=== PATIENT | female | born 1970 | race Caucasian/White ===

== ENCOUNTER → 2017-05-24 07:15 | Outpatient (CLI) | payer OTHER, SELFPAY ==
--- NOTE | 2017-05-24 07:20 | CT_ITS ---
STUDY: CT BRAIN WITH AND WITHOUT CONTRAST REASON FOR EXAM: Female, 47 years old. Right-sided and posterior headaches. RADIATION DOSAGE (If Supplied By Facility): CTDIvol = ( 44.99 ) mGy, DLP = ( 1513.48 ) mGycm TECHNIQUE: Transaxial CT imaging of the brain was performed pre and post contrast administration. The examination was performed with intravenous administration of 50 ml of Isovue 370 contrast material. Individualized dose optimization techniques were used for this CT. COMPARISON: None. FINDINGS: Normal soft tissue structures. Normal calvarium. Normal size ventricles and extra-axial spaces for the patient's age. Normal white matter tracts of the cerebral hemispheres. Normal basal ganglia and thalami. Normal brainstem. Normal cerebellum. There is no intracranial hemorrhage. There are no findings of an acute ischemic infarction. Normal visualized paranasal sinuses. CT/Brain/Head W/WO Contrast IMPRESSION: Normal unenhanced and enhanced CT scan of the brain. Electronically Signed: Anurag Tillman MD at 8:38 EDT Tel [phone], Service support ,
== END ==
PROVIDERS: Family Provider Internal Medicine; PCP Internal Medicine; Visit Provider Internal Medicine
DX: R51 Headache (principal)
CPT/HCPCS: 70470; Q9967

== ENCOUNTER → 2017-10-28 07:51 | Outpatient (CLI) | payer OTHER, SELFPAY ==
--- NOTE | 2017-10-28 07:53 | BI_ITS ---
MAMMOGRAPHY - BILATERAL SCREENING REASON FOR EXAM: Female, 47 years old. Routine annual screening examination. PERTINENT HISTORY: Non-contributory. TECHNIQUE: Digital bilateral breast iker (3D mammographic acquisition) in the CC and MLO projections. 2-D mediolateral oblique (MLO) and craniocaudad (CC) views of both breasts were obtained. CAD: Full Field Digital Mammography with Computer Added Detection was performed. COMPARISON: Comparison is made with prior study dated February 23, 2016 and November 16, 2009. FINDINGS: Breast Composition: There are scattered areas of fibroglandular density. There are no dominant masses or suspicious calcifications. No other significant abnormalities are identified. There has been no significant change since the prior study. BI/SCREENING MAMM (CAD), BILAT IMPRESSION: Stable bilateral screening mammogram. Yearly follow-up mammogram recommended. (A) ASSESSMENT CATEGORY: BIRADS Category 1: Negative. A letter regarding these results will be sent to the patient by the facility within 30 days. Approximately 10% of breast cancers are not detected by mammography. A normal mammogram should not delay biopsy of a clinically suspicious abnormality. [id number] Electronically Signed: Anurag Tillman MD at 8:15 EDT Tel [phone], Service support ,
== END ==
PROVIDERS: Family Provider Internal Medicine; PCP Internal Medicine; Visit Provider Internal Medicine
DX: Z12.31 Encounter for screening mammogram for malignant neoplasm of breast (principal)
CPT/HCPCS: 77063; 77067

== ENCOUNTER → 2018-02-17 08:26 | Outpatient (CLI) | payer OTHER, SELFPAY ==
[2015-09-19 09:25] VITALS: BMI 33.1
[2018-02-17 09:40] LABS: Absolute Lymphocyte Count 1.67 X10^3/ul (0.83-4.51); Absolute Neutrophil Count 3.5 X10^3/uL (2.0-7.7); Basophil# 0.04 X10^3/uL; Basophil% 0.7 % (0-1); Eosinophil# 0.09 X10^3/uL; Eosinophils% 1.6 % (0-5); Hematocrit 41.5 % (37-47); Hemoglobin 13.8 g/dl (12.0-15.0); Lymphocyte # 1.67 X10^3/ul (4.0); Mean Corp Hgb Conc 33.3 g/gl (32-36); Mean Corpuscular Hgb 29.7 pg (27.0-32.0); Mean Corpuscular Volume 89.4 fL (81-99); Mean Platelet Vol. 9.1 fl (6.2-12.0); Monocyte# 0.42 X10^3/uL; Monocyte% 7.3 % (0-10); Neutrophil # 3.53 X10^3/uL (2.7-7.7); Neutrophil % 61.2 % (47-70); Platelet Count 245 K/mm3 (150-450); RBC Distribution Width CV 13.1 % (11.6-14.6); RBC Distribution Width SD 42.5 fl (35.1-43.9); Red Blood Count 4.64 M/mm3 (4.2-5.4); White Blood Count 5.8 K/mm3 (4.4-11.0)
[2018-02-17 09:42] LABS: POSITIVE COUNT NO; POSITIVE DIFFERENTIAL NO; POSITIVE MORPHOLOGY NO
[2018-02-17 10:36] LABS: AST(SGOT) 23 U/L (15-37); Alanine Aminotransfer ALT/SGPT 44 U/L (13-56); Albumin, Serum 3.6 g/dL (3.2-5.0); Alkaline Phosphatase 88 U/L (45-117); Anion Gap 9 (5-15); BUN 14 mg/dL (7-18); BUN/Creat Ratio 15.6 RATIO (10-20); Calcium,Total 8.7 mg/dL (8.5-10.1); Chloride 106 mmol/L (98-107); EST Glomerular Filtration Rate 71 mL/min (>60); Est Glom Filt Rate - Afr Amer 86 mL/min (>60); Free T3 2.8 pg/mL (2.18-3.98); Globulin 3.5 g/dL (2.2-4.2); Glucose 88 mg/dL (74-106); Potassium 4.2 mmol/L (3.5-5.1); Protein, Total 7.1 g/dL (6.4-8.2); Sodium Level 141 mmol/L (136-145); T4 Free Direct 0.92 ng/dL (0.76-1.46); Thyroid Stim Hormone (TSH) 2.75 uIU/mL (0.358-3.74)
[2018-02-20 12:07] LABS: CHOLESTEROL TOTAL 170 mg/dL (100-199); HDL-C 54 mg/dL (>39); HDL-P TOTAL 36.7 umol/L (>=30.5); SMALL LDL-P 435 nmol/L (<=527); TRIGLYCERIDES 73 mg/dL (0-149)
[2018-02-22 09:37] LABS: LDL SIZE 21.3 nm (>20.5); LDL-C 101 mg/dL (0-99); LDL-P 960 nmol/L (<1000); LP-IR SCORE ** <25 (<=45)
== END ==
PROVIDERS: Family Provider Internal Medicine; PCP Internal Medicine; Referring Provider Internal Medicine; Visit Provider Internal Medicine
DX: M79.89 Other specified soft tissue disorders (principal); R07.9 Chest pain, unspecified
CPT/HCPCS: 36415; 80053; 80061; 83704; 84439; 84443; 84481; 85025

== ENCOUNTER → 2018-10-16 07:48 | Outpatient (CLI) | payer OTHER, SELFPAY ==
--- NOTE | 2018-10-16 07:52 | CT_ITS ---
STUDY: CT ABDOMEN AND PELVIS WITHOUT CONTRAST REASON FOR EXAM: Female, 48 years old. Bloating and right lower quadrant discomfort RADIATION DOSAGE (If Supplied By Facility): CTDIvol = ( 17.30 ) mGy, DLP = ( 894.86 ) mGycm TECHNIQUE: Transaxial images were obtained from the dome of the diaphragm to the symphysis pubis without oral contrast, and without intravenous contrast. Sagittal and coronal images were reconstructed. Individualized dose optimization techniques were used for this CT. COMPARISON: June 16, 2008 FINDINGS: The visualized lung bases are unremarkable. The visualized portions of the heart are within normal limits. Normal liver. Large calcified gallstone without evidence for acute inflammatory changes. Tiny granulomatous calcifications within normal size spleen. Normal pancreas. Normal bilateral adrenal glands. Normal right kidney. Normal left kidney. Normal visualized stomach. Normal small intestine. Minor diverticular changes of the colon without evidence for acute diverticulitis.. No evidence for acute appendicitis.. Normal abdominal aorta. Normal inferior vena cava. Normal retroperitoneum. Incompletely distended mildly thick-walled bladder likely of no significance Normal abdominal wall. Lumbar spine demonstrates mild spondylosis CT/Abdomen/Pelvis without Cont IMPRESSION: Cholelithiasis without evidence for acute cholecystitis. Minor diverticular changes of colon without evidence for acute diverticulitis. No evidence for acute appendicitis Electronically Signed: Joshua Valerio MD at 21:50 EDT , Service support ,
== END ==
PROVIDERS: Family Provider Internal Medicine; PCP Internal Medicine; Referring Provider Internal Medicine; Visit Provider Internal Medicine
DX: R14.0 Abdominal distension (gaseous) (principal)
CPT/HCPCS: 74176

== ENCOUNTER → 2018-10-22 12:45 | Outpatient (CLI) | payer OTHER, SELFPAY ==
--- NOTE | 2018-10-22 13:17 | US_ITS ---
STUDY: THYROID ULTRASOUND REASON FOR EXAM: Female, 48 years old. Nodules TECHNIQUE: Ultrasound evaluation of the thyroid was performed with real-time and static christianson-scale imaging. COMPARISON: 09/15/2016 FINDINGS: RIGHT LOBE: The right lobe of the thyroid gland measures 4.4 x 1.4 x 1.3 cm. There is a heterogeneous echotexture. There are stable solid nodules, largest measures 9 mm. LEFT LOBE: The left lobe of the thyroid gland measures 3.7 x 1.0 x 1.1 cm. There is a heterogeneous echotexture. There are stable solid nodules measuring 6 mm in greatest dimension. ISTHMUS: The isthmus measures 3 mm. The regional lymph nodes are normal. US/Thyroid IMPRESSION: Normal size heterogeneous thyroid gland with stable bilateral subcentimeter solid nodules. No interval change. Electronically Signed: Lisandro Rocha MD at 14:21 EDT , Service support ,
== END ==
PROVIDERS: Family Provider Internal Medicine; PCP Internal Medicine; Referring Provider Internal Medicine; Visit Provider Internal Medicine
DX: E01.0 Iodine-deficiency related diffuse (endemic) goiter (principal)
CPT/HCPCS: 76536

== ENCOUNTER → 2018-10-24 12:49 | Outpatient (CLI) | payer OTHER, SELFPAY ==
[2015-09-19 09:25] VITALS: BMI 33.1
--- NOTE | 2018-10-24 12:52 | US_ITS ---
STUDY: ULTRASOUND OF THE FEMALE PELVIS - COMPLETE REASON FOR EXAM: Female, 48 years old. Pain, history of ovarian cyst LMP: Unknown. TECHNIQUE: Transabdominal and Transvaginal TECHNICAL QUALITY: Adequate. COMPARISON: None. FINDINGS: The uterus was not visualized. The right ovary is visualized. The right ovary measures 1.8 x 0.8 x 0.7 cm. There is no right ovarian cyst or ovarian mass. There is no visualized right adnexal mass or complex lesion. There is normal arterial and normal venous vascularity. The left ovary is visualized. The left ovary measures 2.1 x 1.5 x 1.0 cm. There is no left ovarian cyst or ovarian mass. There is no visualized left adnexal mass or complex lesion. There is normal arterial and normal venous vascularity. There is no fluid in the cul-de-sac. The bladder is sonographically normal US/Pelvic (Non ) IMPRESSION: No suspicious sonographic findings Electronically Signed: Lisandro Rocha MD at 15:21 EDT , Service support ,
== END ==
PROVIDERS: Family Provider Internal Medicine; PCP Internal Medicine; Referring Provider Internal Medicine; Visit Provider Internal Medicine
DX: N83.201 Unspecified ovarian cyst, right side (principal)
CPT/HCPCS: 76856; 93976

== ENCOUNTER → 2018-10-29 07:59 | Outpatient (CLI) | payer OTHER, SELFPAY ==
[2015-09-19 09:25] VITALS: BMI 33.1
--- NOTE | 2018-10-29 08:01 | BI_ITS ---
MAMMOGRAPHY - BILATERAL SCREENING REASON FOR EXAM: Female, 48 years old. Routine annual screening examination. PERTINENT HISTORY: Non-contributory. TECHNIQUE: Digital bilateral breast marianna (3D mammographic acquisition) in the CC and MLO projections. 2-D mediolateral oblique (MLO) and craniocaudad (CC) views of both breasts were obtained. CAD: Full Field Digital Mammography with Computer Added Detection was performed. COMPARISON: Comparison is made with prior examination of October 28, 2017 and February 23, 2016. FINDINGS: Breast Composition: There are scattered areas of fibroglandular density. There are no dominant masses or suspicious calcifications. Stable appearance of the small bilateral axillary lymph nodes. No other significant abnormalities are identified. There has been no significant change since the prior study. BI/SCREEN MAMM (CAD) W/MARIANNA BILAT IMPRESSION: Stable bilateral screening mammogram. Yearly follow-up mammogram recommended. (A) ASSESSMENT CATEGORY: BIRADS Category 2: Benign. A letter regarding these results will be sent to the patient by the facility within 30 days. Approximately 10% of breast cancers are not detected by mammography. A normal mammogram should not delay biopsy of a clinically suspicious abnormality. [id number] Electronically Signed: Anurag Tillman, at 9:38 EDT , Service support ,
== END ==
PROVIDERS: Family Provider Internal Medicine; PCP Internal Medicine; Referring Provider Internal Medicine; Visit Provider Internal Medicine
DX: Z12.31 Encounter for screening mammogram for malignant neoplasm of breast (principal)
CPT/HCPCS: 77063; 77067

== ENCOUNTER 2018-12-20 06:01 | Day surgery (SDC) | payer OTHER, SELFPAY ==
[2018-11-06 08:48] VITALS: BMI 33.1
--- NOTE | 2018-12-03 09:12 | HP_ITS ---
Intake Vital Signs 11/06/18 Body Mass Index (BMI) 33.1 11/06/18 Height 5 ft 4 in 11/06/18 Weight: 216 lb 11/06/18 Body Mass Index (BMI) 37.0 11/06/18 Blood Pressure 130/90 H 11/06/18 Blood Pressure Location Rt brachial 11/06/18 Respiratory Rate 18 11/06/18 Pulse Rate 76 11/06/18 Pulse Source Monitor 11/06/18 Temperature 98.4 F 11/06/18 Pulse Ox 97 11/06/18 Oxygen Delivery Method room air Intake Visit Reasons: Gallstones [facility] 10/16 Machine Bender Required: No Is patient in pain?: No Allergies iodine Allergy (Verified 11/06/18 08:46) Other Medications Budesonide/Formoterol 80-4.5 [Symbicort 80-4.5 Mcg Inhaler] 2 puff INHALATION Q6H PRN PRN 04/24/13 [History Confirmed 11/06/18] Omeprazole [Prilosec] 20 mg PO DAILY 04/24/13 [History Confirmed 11/06/18] levothyroxine 25 mcg tablet PO #30 tab 11/06/18 [History Confirmed 11/06/18] [facility] Medical History Abdominal pain (Acute) GERD (gastroesophageal reflux disease) (Acute) Gallstone (Acute) Nausea (Acute) Sleep apnea (Acute) Weight gain (Acute) Surgical History History of (Acute) History of hysterectomy (Acute) Family History Grandfather Cancer esophageal cancer Social History (Updated 11/07/18 @ 11:32 by Kamaljit Reardon MD) Smoking Status: Never smoker alcohol intake: current alcohol intake frequency: a few times a month substance use type: does not use HPI HPI HPI: KRISTA VASQUEZ, is a 48 F who presents to the office today for HPI HPI Surgical H&P: Yes HPI: KRISTA VASQUEZ, is a 48 F who presents to the office today for Evaluation of cholelithiasis. Patient has had a CAT scan of the abdomen pelvis completed it was [facility] on 10/16/2018 she was noted to have a large calcified gallstone without evidence of acute inflammatory changes. Patient has been complaining of right sided fullness more prominent over the last few months. Occasionally worse with food. She has had no nausea or vomiting nor has she had any pain in her back. Patient is also noted that since June she has had about a 20 pound weight gain. She does not have the classic symptoms of symptomatic cholelithiasis with right upper quadrant abdominal pain going into her back associated with foods clearly. Symptoms are more fullness. ROS General General: Yes weight change and fatigue; no appetite, colon cancer, breast cancer or weakness HEENT HEENT: No difficulty swallowing, eye injury, eye surgery, swollen glands or hoarseness Endo Endocrine: Yes thyroid disease; no diabetes mellitus, thyroid cancer, Hair loss, heat intolerance or cold intolerance Skin Skin: No rash or changing moles Breast Breast: No left breast lump, right breast lump, nipple discharge, breast pain, abnormal mammogram, abnormal US or breast enlargement Musc Musculoskeletal: No back problems, arthritis, rheumatoid arthritis, gout or joint pain Cardio Cardiovascular: No murmur, pacemaker, heart disease, atrial fibrillation, high blood pressure, heart attack, heart stent, palpitations, shortness of breat with exertion or chest pain Psych Psychiatric: No depression, anxiety or hearing voices Resp Respiratory: No shortness of breath, Yes sleep apnea, No cough, No COPD, No asthma, No emphysema, No wheezing Gastro Gastrointestinal: Yes abdominal pain, Yes nausea or vomiting, No diarrhea, No constipation, No blood in stool, Yes acid reflux, No hemorrhoids, No ulcers, No gallbladder problem, No black,tarry stools Abbe Hematologic: No blood thinners, No blood disorders, No bleeding, No anemia, No blood clots Neuro Neurologic: No system reviewed and no additional complaints, except as docu, No as per HPI, No abnormal walking, No abnormal hearing, No abnormal movements, No abnormal speech, No behavioral changes, No burning sensations, No confusion, No seizure-like activity, No unsteadiness, No dizziness, No localized weakness, No frequent falls, No headache(s), No lack of coordination, No loss of vision, No memory loss, No numbness, No other visual disturbances, No radiating pain, No restless legs, No sensory deficit, No fainting, No tingling, No tremor(s), No weakness, No other Exam Const General: no acute distress, well developed, well hydrated Orientation: oriented to person, oriented to place, oriented to time [facility] Head: normocephalic, atraumatic Ears: external ears normal Mouth: moist mucous membranes Eyes Sclera: sclerae normal Pupils: normal by confrontation Neck Neck: no lymphadenopathy noted Neck mass: No Thyroid: thyroid normal, symmetrical Chest Chest palpation & inspection: normal inspection of the chest Breast Palpation: No nipple discharge Resp Effort & Inspection: normal respiratory effort Auscultation: clear to auscultation bilaterally Percussion: percussion normal Cardio Rate: regular rate Rhythm: regular rhythm Heart Sounds: no murmurs GI Palpation: soft, no hepatosplenomegaly, no masses, tender Auscultation: normal bowel sounds Rectal Exam: other Other: Rectal exam deferred. Extrem General: normal to inspection, no clubbing, cyanosis or edema Assessment & Plan Problems 1. Calculus of gallbladder with chronic cholecystitis without obstruction K80.10 Plan My plan is to perform a laparoscopic cholecystectomy with intraoperative cholangiogram. The planned surgical procedure was discussed extensively with the patient. The risks, benefits, anticipated outcomes and possible complication were mentioned. My staff has also explained the procedure in understandable terms and the patient was given the option to take printed material concerning the planned procedure. The patient had the opportunity to ask questions concerning the planned procedure. The patient freely consents to the planned procedure. I have gone over her endoscopy results which were completed at the [facility]. She really does not have anything within her upper or her lower endoscopy which would explain her symptoms at this time. Her last colonoscopy was in 2016 and her upper endoscopy was in January 2018. And really not sure that repeating these tests are going to give us any more information than we do not already know. She does understand that there is still is a chance that even after removing her gallbladder that she could have the symptoms that she is currently describing. However I believe that this surgery will give her her best chance of feeling normal. Coding Level of Care Code Off vis,new,level 3 Diagnoses Calculus of gallbladder with chronic cholecystitis without obstruction K80.10 ??Cholelithiasis location: gallbladder ??Cholecystitis acuity: chronic I have re-examined the patient. There are no clinical changes since date of exam.
--- NOTE | 2018-12-17 08:27 | EKG12_ITS ---
Test Reason : PRE OP Blood Pressure : / mmHG Vent. Rate : 067 BPM Atrial Rate : 067 BPM P-R Int : 156 ms QRS Dur : 084 ms QT Int : 412 ms P-R-T Axes : 057 020 035 degrees QTc Int : 435 ms Normal sinus rhythm Normal ECG Confirmed by CYNTHIA BELL, ALBA ([id number]), graphics editor HEAVENLY ROSENBERG ([id number]) on 12/18/2018 1:56:26 PM Referred By: Kamaljit Reardon Confirmed By:ALBA MARIE MD
[2018-12-17 09:54] LABS: Hematocrit 42.5 % (37-47); Hemoglobin 13.9 g/dL (12.0-15.0); Mean Corp Hgb Conc 32.7 g/dL (32-36); Mean Corpuscular Hgb 28.9 pg (27.0-32.0); Mean Corpuscular Volume 88.4 fL (81-99); Mean Platelet Vol. 8.8 fl (6.2-12.0); Platelet Count 271 K/mm3 (150-450); RBC Distribution Width CV 12.8 % (11.6-14.6); RBC Distribution Width SD 41.5 fl (35.1-43.9); Red Blood Count 4.81 M/mm3 (4.2-5.4); White Blood Count 6.3 K/mm3 (4.4-11.0)
[2018-12-17 10:21] LABS: International Normalized Ratio 1.1; Prothrombin Time (Protime)PT. 13.9 SECONDS (11.7-14.9)
[2018-12-17 10:22] LABS: Partial Thromboplast Time 32.2 Seconds (24.1-36.2)
[2018-12-17 10:30] LABS: AST(SGOT) 28 U/L (15-37); Alanine Aminotransfer ALT/SGPT 45 U/L (13-56); Albumin, Serum 3.7 g/dL (3.2-5.0); Alkaline Phosphatase 84 U/L (45-117); Globulin 3.9 g/dL (2.2-4.2); Protein, Total 7.6 g/dL (6.4-8.2); Thyroid Stim Hormone (TSH) 2.68 uIU/mL (0.358-3.74)
[2018-12-20] VITALS (10 sets, daily range): BP systolic 115–140; BP diastolic 73–106; PULSE 61–73; RESP 16–18; TEMP 36.1–36.8; O2SAT 94–98; BMI 36.3
[2018-12-20] MEDS: Lactated Ringers 1,000 ML 100 ML IV ×2 (06:54→07:08)
--- NOTE | 2018-12-20 07:30 | GALL_PTH ---
PATIENT: KRISTA VASQUEZ LOC: [facility] U#:[id number] AGE/SX: 48/F ROOM: RE12/20/[address]: Dr. Kamaljit Reardon MD : 1970 BED: DIS: 12/20/2018 SPEC #: [id number] RECD: 12/20/18 14:36 STATUS: MARIEL NADEGE #: [id number] LI: 12/20/18 07:[address]: Kamaljit Reardon DEPT: SURGICAL PATHOLOGY RECD BY: Isaac Waldrop ENTERED: 12/21/18 09:40 SP TYPE: MERLIN CERVANTES DR: Dr. Liana Morfin, Tissues: Gallbladder, NOS Procedures: Surgery Specimen Level III HEADER OPERATION: Robotic assisted laparoscopic cholecystectomy PRE-OP DIAGNOSIS: Calculus of gallbladder TISSUE SUBMITTED: Gallbladder MICROSCOPIC DIAGNOSIS Gallbladder, cholecystectomy: Chronic cholecystitis and cholelithiasis. AM:joss 12/24/18 MICROSCOPIC DESCRIPTION Slides are reviewed. GROSS DESCRIPTION Received is one container labeled with the patient's name and designated gallbladder. The specimen consists of a gallbladder measuring 10 cm in length and up to 3 cm in diameter. The external surface is pink-arce, smooth and glistening for the most part. Focally it is granular, hemorrhagic and contains cautery artifact. The gallbladder contains green-yellow mucoid bile and one greenish ovoid stone measuring 2.5 x 2 x 1.5 cm. The mucosa is bile-stained and without any mass lesions. The gallbladder wall measures 0.1 cm in thickness. Ent Consultant sections from the gallbladder and the cystic duct are submitted in one cassette. / SJ:rg 12/21/18 TC:3 CPT: 23496
[2018-12-20] MEDS: Cefazolin 2 GM in 0.9% Normal Saline 100 ML IV (07:32)
--- NOTE | 2018-12-20 07:33 | PCM.DC.GB ---
Discharge Diet: Light diet - advance as tolerated Discharge Activity: May Not Drive - for 2-3 days or while taking narcotic pain medications., - - Do not drive, work heavy equipment or sign legal documents for 24 hours. May shower in (days): 1 - with the bandage in place. Additional Activity Instructions:: Pain medication may cause nausea. You should typically eat light foods as you take your pain medications. Pain medication may also cause constipation. If this is a problem for you, please discuss with your doctor. Call your doctor if your incision/area has: Continuous Slow Oozing, Sudden Increased Bleeding, Increased Pain/ Swelling, Increased Redness, Foul Smelling Discharge Call your doctor if you observe: Fever of 101 or Higher Suture Line Care: Avoid Pulling/Pushing, Avoid Pinching/Bending Additional Dressing/Incision Instructions:: Leave operative bandaids on for 2 days. When you remove dressing, leave Steri-Strips on until your follow-up appointment, or until the Steri-Strips fall off on their own. Allergies/Adverse Reactions: Allergies acetaminophen [From Percocet] Allergy (Verified 12/20/18 06:32) Itching iodine Allergy (Verified 12/20/18 06:32) Other oxycodone [From Percocet] Allergy (Verified 12/20/18 06:32) Itching Medications to take at Discharge Budesonide/Formoterol 80-4.5 [Symbicort 80-4.5 Mcg Inhaler] 2 puff INHALATION Q6H PRN PRN 04/24/13 Omeprazole [Prilosec] 20 mg PO QHS 04/24/13 levothyroxine 25 mcg tablet 25 mcg PO DAILY #30 tab 11/06/18 Fluticasone 0.05% [Flonase Nasal Aladdin] 1 spray NASAL QHS 12/14/18 Hydrocodone Bitart/Apap 5-325 [[place] 5MG-325MG] 1 - 2 tab PO Q4H PRN PRN 7 Days #30 tab 12/20/18 The following prescriptions were given: Hydrocodone Bitart/Apap 5-325 [[place] 5MG-325MG] 1 - 2 tab PO Q4H PRN PRN 7 Days #30 tab PRN Reason: Pain Prescription Printed Orders to be completed after discharge: 12 Lead EKG [[facility]] Time Frame: 12/14/18, Facility: [facility], Location: Cardiovascular Services CBC-Complete Blood Cnt No Diff Time Frame: 12/14/18, Facility: [facility], Location: Laboratory Liver Profile Time Frame: 12/14/18, Facility: [facility], Location: Laboratory Partial Thromboplast Time Time Frame: 12/14/18, Facility: [facility], Location: Laboratory Prothrombin Time w/INR Time Frame: 12/14/18, Facility: [facility], Location: Laboratory Thyroid Stim Hormone (TSH) Time Frame: 12/14/18, Facility: [facility], Location: Laboratory Primary Care Physician: Liana Morfin DO [Primary Care Provider] - Test Results: Test results from this visit will be discussed in further detail at your follow-up appointment, if applicable. Please Follow Up With: Kamaljit Reardon MD - Please call [phone] to schedule an appointment. When: 7 days after your surgery.
--- NOTE | 2018-12-20 07:33 | PCM.OPRPT ---
Problem List (1) Calculus of gallbladder with chronic cholecystitis without obstruction Status: Chronic Report of Operation Date of Procedure: 12/20/18 Pre-Operative Diagnosis: Calculus of the gallbladder without obstruction or gangrene Post-Operative Diagnosis: Same Surgery/Procedure Performed:: Laparoscopic cholecystectomy Type of Anesthesia:: General Anesthesiologist: Eyal Rivera Specimen's removed: Gallbladder Drains: None Estimated Blood Loss (mL): < 25 cc Fluids Replaced: 1200 cc LR Description of Procedure: The patient was brought into the operating room placed in the supine position. Under excellent endotracheal intubation patient was then placed in position with the head up and rotated to the left. The abdomen was then sterilely prepped and draped in usual fashion. Local was injected above the umbilicus incision was made dissection was carried down to the fascia the fascia was grasped with a Jacquelin varies needle was placed inside the abdomen the abdomen was insufflated to 15 torr a 10/12 trocar was placed without difficulty. I placed a #8 trocar in the left midclavicular line centimeters away from the midline trocar and in similar fashion on the right midclavicular line #8 trocar was placed over these under direct visualization without injury to underlying structures. Laterally #5 trochars placed under direct visualization grasper was placed grabbed the fundus was retracted in a cephalad direction. I went to the robot with the robot and pro-grasper I was taking the adhesions off of the gallbladder and retracting the gallbladder in a cephalad direction and similar fashion. He came down I dissected out the cystic duct placed 2 hemoclips proximally one distally and ligated the duct process of dissecting out the cystic artery I identified the right hepatic artery it was very close to the cystic artery as I was dissecting out the cystic artery and I was placing 2 hemoclips proximally I started a unfortunately Max tissue as the exchange of clips was going in and out of the abdomen at this point I decided to go to a strictly regular laparoscopic surgery so that I could push the trocar all the way in and not grasp anything. I inspected all the tissue on the right upper quadrant I did not see any injury to the underlying stomach or colon. I deliver the gallbladder from gallbladder bed with use of electrocautery I placed a regular titanium clip and a small little vessel which I thought was actually a duct of Aislinn way up on the fundus of the gallbladder. Placed the gallbladder and gallbladder bladder specimen bag delivered through the 1012 trocar without difficulty. Rugated the right upper quadrant good hemostasis was noted. Removed all the trochars under direct visualization good hemostasis was noted. Closed the fascia the umbilical port with an 0 Vicryl time skin incisions were closed with some particular stitches of 4-0 Monocryl. Steri-Strips were applied sterile dressings were applied and the patient tolerated the procedure well. - Admit VTE Documentation VTE Present on Admission: No VTE Mechan Device Prophylaxis: SCD's VTE Pharm Prophylaxis ordered?: No Reason prophylaxis not ordered:: Treatment Not Indicated
[2018-12-20] MEDS: Bupivacaine Mpf 0.5% 30 ML VIAL (08:45)
[2018-12-20] MEDS: HYDROcodone Bitartrate/Apap 5/325 Tablet PO (11:05)
== END 2018-12-20 12:10 | disposition home or self-care (01) ==
LOC: SDC 06:07 → AC 06:07
PROVIDERS: Family Provider Internal Medicine; PCP Internal Medicine; Referring Provider Surgery; Visit Provider Surgery
PROC: 0FT44ZZ Resection of Gallbladder, Percutaneous Endoscopic Approach (ICD-10-PCS; CPT 47562; principal; 2018-12-20 07:10)
DX: K80.10 Calculus of gallbladder with chronic cholecystitis without obstruction (principal); J45.909 Unspecified asthma, uncomplicated
CPT/HCPCS: 00790; 47562; 36415; 80076; 84443; 85027; 85610; 85730; 88304; 93005; J7120; J2405

== ENCOUNTER → 2019-07-25 07:57 | Outpatient (CLI) | payer OTHER, SELFPAY ==
[2018-12-20 06:34] VITALS: BMI 36.3
--- NOTE | 2019-07-25 08:00 | US_ITS ---
STUDY: ULTRASOUND - URINARY BLADDER REASON FOR EXAM: Female, 49 years old. Urinary frequency TECHNIQUE: Ultrasound evaluation of the urinary bladder was performed with real-time and static christianson-scale imaging. COMPARISON: None. FINDINGS: There is no right UVJ calculus. There is a visualized right ureteral jet. There is no left UVJ calculus. There is a visualized left ureteral jet. The distended volume of the urinary bladder is 66.5 ml. The empty volume of the urinary bladder is 2.7 ml. The bladder wall is within normal limits. The bladder wall measures 3.3. There is no demonstrated bladder wall mass lesion. There are no demonstrated bladder calculi. US/Post Void Residual Bladder IMPRESSION: No significant postvoid residual is seen. Electronically Signed: Anurag Tillman, at 10:17 EDT , Service support ,
--- NOTE | 2019-07-25 08:00 | US_ITS ---
STUDY: ABDOMINAL ULTRASOUND REASON FOR EXAM: Female, 49 years old. Epigastric pain TECHNIQUE: Transabdominal ultrasound was performed with real-time and static christianson scale imaging. TECHNICAL QUALITY: Adequate. COMPARISON: None. FINDINGS: Liver: The liver is borderline enlarged and measures 17.5 cm. There is normal echogenicity of the liver. The bile ducts are within normal limits. There is hepatic color flow. The direction of portal flow is hepatopetal. There is no demonstrated mass lesion. Portal vein measurement: Gallbladder: The patient is status post cholecystectomy. Common Bile Duct (C.B.D.): The common bile duct measures 5 mm. Pancreas: Normal size of the head, body and tail of the pancreas. There is normal echogenicity of the pancreas. There is no demonstrated pancreatic mass or cyst. Spleen: Normal size of the spleen. The spleen measures 11.7 cm x 4.6 cm x 5.2 cm. Right Kidney: Normal size of the right kidney. The right kidney measures 10.9 cm x 4.8 cm x 4.4 cm. Normal renal cortex. The right cortex measures 1.7 cm. There is no demonstrated renal mass or cyst. There is no right hydronephrosis. Left Kidney: Normal size of the left kidney. The left kidney measures 11 cm x 4.3 cm x 4.7 cm. Normal renal cortex. The left cortex measures 1.4 cm. There is no demonstrated renal mass or cyst. There is no left hydronephrosis. Aorta: Unremarkable I.V.C.: The IVC is patent. There is no ascites. US/Abdomen Complete IMPRESSION: Borderline hepatomegaly. Status post cholecystectomy. Electronically Signed: Anurag Tillman, at 10:06 EDT , Service support ,
== END ==
PROVIDERS: PCP Internal Medicine; Referring Provider Nurse Practitioner; Visit Provider Nurse Practitioner
DX: R10.13 Epigastric pain (principal); R35.0 Frequency of micturition
CPT/HCPCS: 51798; 76700

== ENCOUNTER → 2019-10-11 13:28 | Outpatient (CLI) | payer OTHER, SELFPAY ==
[2018-12-20 06:34] VITALS: BMI 36.3
== END ==
PROVIDERS: PCP Internal Medicine; Referring Provider Family Medicine; Visit Provider Family Medicine
DX: Z20.828 Contact with and (suspected) exposure to other viral communicable diseases (principal)
CPT/HCPCS: 87635; U0003

== ENCOUNTER → 2019-12-23 07:16 | Outpatient (CLI) | payer OTHER, SELFPAY ==
[2018-12-20 06:34] VITALS: BMI 36.3
--- NOTE | 2019-12-23 07:18 | BI_ITS ---
MAMMOGRAPHY - BILATERAL SCREENING REASON FOR EXAM: Female, 49 years old. Routine annual screening examination. PERTINENT HISTORY: Non-contributory. TECHNIQUE: Digital bilateral breast marianna (3D mammographic acquisition) in the CC and MLO projections. 2-D mediolateral oblique (MLO) and craniocaudad (CC) views of both breasts were obtained. CAD: Full Field Digital Mammography with Computer Added Detection was performed. COMPARISON: Comparison is made with prior study dated 10/29/2018 and 10/28/2017. FINDINGS: Breast Composition: There are scattered areas of fibroglandular density. There are no dominant masses or suspicious calcifications. Stable small benign appearing bilateral axillary lymph nodes. No other significant abnormalities are identified. There has been no significant change since the prior study. BI/SCREEN MAMM (CAD) W/MARIANNA BILAT IMPRESSION: Stable bilateral screening mammogram. Yearly follow-up mammogram recommended. (A) ASSESSMENT CATEGORY: BIRADS Category 2: Benign. A letter regarding these results will be sent to the patient by the facility within 30 days. Approximately 10% of breast cancers are not detected by mammography. A normal mammogram should not delay biopsy of a clinically suspicious abnormality. [id number] Electronically Signed: Anurag Tillman, at 8:57 EST , Service support ,
== END ==
PROVIDERS: PCP Internal Medicine; Referring Provider Internal Medicine; Visit Provider Internal Medicine
DX: Z12.31 Encounter for screening mammogram for malignant neoplasm of breast (principal)
CPT/HCPCS: 77063; 77067

== ENCOUNTER → 2020-01-24 12:56 | Outpatient (CLI) | payer OTHER, SELFPAY ==
[2018-12-20 06:34] VITALS: BMI 36.3
== END ==
PROVIDERS: Referring Provider Family Medicine; Visit Provider Family Medicine
DX: Z20.828 Contact with and (suspected) exposure to other viral communicable diseases (principal)
CPT/HCPCS: 87635; U0003

== ENCOUNTER 2020-02-03 13:48 | Outpatient (RCR) | payer OTHER, SELFPAY ==
[2018-12-20 06:34] VITALS: BMI 36.3
== END 2020-02-06 23:59 ==
LOC: LABSPEC 13:48
PROVIDERS: PCP Family Medicine; Referring Provider Family Medicine; Visit Provider Family Medicine
DX: Z20.828 Contact with and (suspected) exposure to other viral communicable diseases (principal)
CPT/HCPCS: 87635; U0003

== ENCOUNTER → 2020-03-02 07:39 | Outpatient (REF) | payer OTHER, SELFPAY ==
[2018-12-20 06:34] VITALS: BMI 36.3
== END ==
LOC: LABSPEC 07:39
PROVIDERS: PCP Family Medicine; Visit Provider Family Medicine
DX: Z20.828 Contact with and (suspected) exposure to other viral communicable diseases (principal)
CPT/HCPCS: 87635; U0003

== ENCOUNTER → 2020-08-24 09:59 | Outpatient (CLI) | payer OTHER, SELFPAY ==
[2018-12-20 06:34] VITALS: BMI 36.3
--- NOTE | 2020-08-24 10:02 | VDLE_ITS ---
Reason For Study: BLE PAIN RIGHT LEFT GSV is normal. GSV is normal. CFV is compressible, spontaneous, phasic, CFV is compressible, spontaneous, phasic, competent and demonstrates normal competent, and demonstrates normal augmentation. augmentation. FV is compressible, spontaneous, phasic, FV is compressible, spontaneous, phasic, competent and demonstrates normal competent and demonstrates normal augmentation. augmentation. POP V is compressible, spontaneous, phasic, POP V is compressible, spontaneous, phasic, competent and demonstrates normal competent and demonstrates normal augmentation. augmentation. T/P Trunk is compressible. T/P Trunk is compressible. PTV is compressible. PTV is compressible. RT PerV is compressible. LT PerV is compressible. Procedure This is a venous duplex using B-mode, color flow and spectral Doppler. Exam performed in department. The exam was diagnostic. A preliminary report was called and/or faxed to Dr. Goldstein @ 10:30 am. VL/Venous Duplex US - Dusty Extrem Interpretation Summary Bilateral lower extremities with no DVT or SVT visualized. Ordering Physician: Devendra Goldstein Referring Physician: Liana Morfin Performed By: Diane Bolaños, ANGIECS, RVT
== END ==
PROVIDERS: PCP Internal Medicine; Referring Provider Surgery Vascular Surgery; Visit Provider Surgery Vascular Surgery
DX: M79.89 Other specified soft tissue disorders (principal); M79.606 Pain in leg, unspecified
CPT/HCPCS: 93970

== ENCOUNTER → 2020-10-14 06:03 | Outpatient (CLI) | payer OTHER, SELFPAY ==
[2018-12-20 06:34] VITALS: BMI 36.3
--- NOTE | 2020-10-14 11:30 | NEURO ---
NCS and/or EMG Patient Report Ordering Doctor: Liana Morfin DATE OF SERVICE: 10/14/20 Sari presents for electrodiagnostic testing. Pt requests only to have right lower limb tested. She reports intermittent numbness and tingling Electrodiagnostic Testing: Performed in the right lower limb. Normal right peroneal and tibial motor responses. Sensory responses are normal. Needle EMG testing shows no evidence of denervation with normal motor unit action potentials. Electrodiagnostic Impression: This is a normal study in the right lower limb. There is no electrodiagnostic evidence for peripheral neuropathy or lumbar radiculopathy.
== END ==
PROVIDERS: PCP Internal Medicine; Referring Provider Internal Medicine; Visit Provider Internal Medicine
DX: R20.0 Anesthesia of skin (principal)
CPT/HCPCS: 95886; 95911

== ENCOUNTER → 2020-12-23 07:19 | Outpatient (CLI) | payer OTHER, SELFPAY ==
[2018-12-20 06:34] VITALS: BMI 36.3
--- NOTE | 2020-12-23 07:20 | BI_ITS ---
MAMMOGRAPHY - BILATERAL SCREENING REASON FOR EXAM: Female, 50 years old. Routine annual screening examination. PERTINENT HISTORY: Non-contributory. TECHNIQUE: Digital bilateral breast marianna (3D mammographic acquisition) in the CC and MLO projections. 2-D mediolateral oblique (MLO) and craniocaudad (CC) views of both breasts were obtained. CAD: Full Field Digital Mammography with Computer Added Detection was performed. COMPARISON: Comparison is made with prior study dated 12/23/2019 and 10/29/2018. FINDINGS: Breast Composition: There are scattered areas of fibroglandular density. There are no dominant masses or suspicious calcifications. Stable benign-appearing bilateral axillary lymph nodes. No other significant abnormalities are identified. There has been no significant change since the prior study. BI/SCRN MAMM (CAD)W/MARIANNA BILAT IMPRESSION: Stable bilateral screening mammogram. Yearly follow-up mammogram recommended. (A) ASSESSMENT CATEGORY: BIRADS Category 2: Benign. A letter regarding these results will be sent to the patient by the facility within 30 days. Approximately 10% of breast cancers are not detected by mammography. A normal mammogram should not delay biopsy of a clinically suspicious abnormality. [id number] Electronically Signed: Anurag Tillman MD at 8:28 EST , Service support ,
== END ==
PROVIDERS: PCP Internal Medicine; Referring Provider Internal Medicine; Visit Provider Internal Medicine
DX: Z12.31 Encounter for screening mammogram for malignant neoplasm of breast (principal)
CPT/HCPCS: 77063; 77067

== ENCOUNTER → 2021-01-13 08:50 | Outpatient (CLI) | payer OTHER, SELFPAY ==
--- NOTE | 2021-01-13 08:58 | EKG12_ITS ---
Test Reason : PREOP Blood Pressure : / mmHG Vent. Rate : 072 BPM Atrial Rate : 072 BPM P-R Int : 158 ms QRS Dur : 078 ms QT Int : 396 ms P-R-T Axes : 064 057 065 degrees QTc Int : 433 ms Normal sinus rhythm Normal ECG Confirmed by LIONEL BELL, HENOK ([id number]), editorial specialist JACKSON DILLARD ([id number]) on 01/14/2021 12:16:50 PM Referred By: Rei Ramirez Confirmed By:HENOK FLOWERS MD
[2021-01-13 09:58] LABS: Hematocrit 41.8 % (37-47); Hemoglobin 13.7 g/dL (12.0-15.0); Mean Corp Hgb Conc 32.8 g/dL (32-36); Mean Corpuscular Hgb 28.7 pg (27.0-32.0); Mean Corpuscular Volume 87.4 fL (81-99); Mean Platelet Vol. 8.9 fl (6.2-12.0); Platelet Count 312 K/mm3 (150-450); RBC Distribution Width CV 12.7 % (11.6-14.6); RBC Distribution Width SD 40.8 fl (35.1-43.9); Red Blood Count 4.78 M/mm3 (4.2-5.4); White Blood Count 5.7 K/mm3 (4.4-11.0)
[2021-01-13 10:30] LABS: Anion Gap 7 (5-15); BUN 12 mg/dL (7-18); BUN/Creat Ratio 12.5 RATIO (10-20); Calcium,Total 9.2 mg/dL (8.5-10.1); Chloride 105 mmol/L (98-107); Creatinine, Serum 0.96 mg/dL (0.55-1.02); EST Glomerular Filtration Rate 65 mL/min (>60); Est Glom Filt Rate - Afr Amer 79 mL/min (>60); Glucose 99 mg/dL (74-106); Potassium 3.8 mmol/L (3.5-5.1); Sodium Level 138 mmol/L (136-145)
== END ==
PROVIDERS: PCP Internal Medicine; Referring Provider Otolaryngology; Visit Provider Otolaryngology
DX: Z01.812 Encounter for preprocedural laboratory examination (principal); Z01.810 Encounter for preprocedural cardiovascular examination
CPT/HCPCS: 36415; 80048; 85027; 93005

== ENCOUNTER 2021-04-07 10:05 | Outpatient (CLI) | payer OTHER, SELFPAY ==
[2021-04-07 12:04] LABS: Erythrocyte Sedimentation Rate 48 mm/hr (0-30)
[2021-04-07 12:10] LABS: ALB/GLOB Ratio 0.8 RATIO (0.9-2.4); AST(SGOT) 407 U/L (15-37); Absolute Neutrophil Count 3.9 X10^3/uL (2.0-7.7); Alanine Aminotransfer ALT/SGPT 454 U/L (13-56); Albumin, Serum 3.4 g/dL (3.2-5.0); Alkaline Phosphatase 480 U/L (45-117); Anion Gap 7 (5-15); BUN 11 mg/dL (7-18); BUN/Creat Ratio 11.4 RATIO (10-20); Basophil# 0.05 X10^3/uL; Basophil% 0.8 % (0-1); Bilirubin, Direct 4.88 mg/dL (0.00-0.30); Calcium,Total 9.3 mg/dL (8.5-10.1); Chloride 102 mmol/L (98-107); Creatinine, Serum 0.96 mg/dL (0.55-1.02); EST Glomerular Filtration Rate 65 mL/min (>60); Eosinophil# 0.19 X10^3/uL; Eosinophils% 3.2 % (0-5); Est Glom Filt Rate - Afr Amer 79 mL/min (>60); GGTP 1000 U/L (5-55); Globulin 4.5 g/dL (2.2-4.2); Glucose 128 mg/dL (74-106); Hematocrit 43.1 % (37-47); Hemoglobin 14.3 g/dL (12.0-15.0); Lymphocyte % 20.2 % (19-41); Mean Corp Hgb Conc 33.2 g/dL (32-36); Mean Corpuscular Hgb 28.5 pg (27.0-32.0); Mean Corpuscular Volume 85.9 fL (81-99); Monocyte# 0.53 X10^3/uL; Monocyte% 8.9 % (0-10); NRBC Flagged by Analyzer 0 % (0-5); Neutrophil # 3.94 X10^3/uL (2.7-7.7); Neutrophil % 66.2 % (47-70); Platelet Count 193 K/mm3 (150-450); Potassium 3.4 mmol/L (3.5-5.1); Protein, Total 7.9 g/dL (6.4-8.2); RBC Distribution Width CV 13.3 % (11.6-14.6); RBC Distribution Width SD 41.9 fl (35.1-43.9); Red Blood Count 5.02 M/mm3 (4.2-5.4); Sodium Level 134 mmol/L (136-145)
[2021-04-07 12:12] LABS: Hepatitis B Surface Antibody Reactive
--- NOTE | 2021-04-07 15:36 | US_ITS ---
STUDY: ABDOMINAL ULTRASOUND - RIGHT UPPER QUADRANT REASON FOR VISIT: Female, 51 years old. ABDOMEN PAIN JAUNDICE TECHNIQUE: Ultrasound evaluation of the right upper quadrant was performed with real-time and static christianson-scale imaging. TECHNICAL QUALITY: Adequate. COMPARISON: None. FINDINGS: Liver: There is increased echogenicity consistent with fatty infiltration. The bile ducts are within normal limits. There is hepatic color flow. The direction of portal flow is hepatopetal. There is no demonstrated mass lesion. Gallbladder: The patient is status post cholecystectomy. Common Bile Duct (C.B.D.): The common bile duct measures ( in mm): 3.3 Pancreas: Normal size of the head, body of the pancreas. There is normal echogenicity of the pancreas. There is no demonstrated pancreatic mass or cyst. Right Kidney: Normal size of the right kidney. The right kidney measures 11.2 cm. . Normal renal cortex. There is no demonstrated renal mass or cyst. There is no right hydronephrosis. Aorta: It is not visualized. There is too much overlying bowel gas. . US/Liver IMPRESSION: Fatty liver. Note: Renal size measurements and size measurements of other organs etc may vary depending on modality and cake press operator dependent variations in measurements. (i.e. Measuring a kidney on an US does not correlate with an exact same measurement on a CT.) Electronically Signed: Matthew James MD at 18:44 EST ,
--- NOTE | 2021-04-07 17:43 | US_ITS ---
STUDY: ABDOMINAL ULTRASOUND - RIGHT UPPER QUADRANT REASON FOR VISIT: Female, 51 years old. ABDOMEN PAIN JAUNDICE TECHNIQUE: Ultrasound evaluation of the right upper quadrant was performed with real-time and static christianson-scale imaging. TECHNICAL QUALITY: Adequate. COMPARISON: None. FINDINGS: Liver: There is increased echogenicity consistent with fatty infiltration. The bile ducts are within normal limits. There is hepatic color flow. The direction of portal flow is hepatopetal. There is no demonstrated mass lesion. Gallbladder: The patient is status post cholecystectomy. Common Bile Duct (C.B.D.): The common bile duct measures ( in mm): 3.3 Pancreas: Normal size of the head, body of the pancreas. There is normal echogenicity of the pancreas. There is no demonstrated pancreatic mass or cyst. Right Kidney: Normal size of the right kidney. The right kidney measures 11.2 cm. . Normal renal cortex. There is no demonstrated renal mass or cyst. There is no right hydronephrosis. Aorta: It is not visualized. There is too much overlying bowel gas. . US/Elastography Parenchyma/Organ IMPRESSION: Fatty liver. Note: Renal size measurements and size measurements of other organs etc may vary depending on modality and vibrator operator dependent variations in measurements. (i.e. Measuring a kidney on an US does not correlate with an exact same measurement on a CT.) Electronically Signed: Matthew James MD at 18:44 EST ,
[2021-04-08 08:10] LABS: HEPATITIS B SURFACE AG Negative (Negative); Hepatitis A IgM Antibody Negative (Negative); Hepatitis B Core AB IgM Negative (Negative)
[2021-04-08 18:50] LABS: AFP, Tumor Marker 2.6 ng/mL (0.0-8.3); Hep C Antibodies <0.1 s/co ratio (0.0-0.9); Hepatitis A AB, Total Negative (Negative)
== END 2021-04-07 23:59 | disposition home or self-care (01) ==
PROVIDERS: PCP Internal Medicine; Referring Provider Nurse Practitioner; Visit Provider Nurse Practitioner
DX: R17 Unspecified jaundice (principal); R74.8 Abnormal levels of other serum enzymes
CPT/HCPCS: 36415; 76705; 76981; 80053; 80074; 82105; 82248; 82977; 85025; 85652; 86140; 86706; 86708

== ENCOUNTER 2021-04-07 16:52 | Emergency (ER) | payer OTHER, SELFPAY ==
[2021-04-07 16:52] VITALS: BP 143/96; PULSE 108; RESP 15; TEMP 36.2; O2SAT 99; BMI 36.9
--- NOTE | 2021-04-07 17:46 | CT_ITS ---
STUDY: CT Abdomen And Pelvis W/ Contrast Injection 04/07/2021 7:18 PM REASON FOR EXAM: Female, 51 years old. elevated liver labs, jaundice, left flank pain, hysterectomy PAIN left flank pain, juandice TECHNIQUE: Transaxial images were obtained without oral contrast, and IV 100mL Isovue-300 intravenous contrast. Individualized dose optimization techniques were used for this CT. COMPARISON: None. FINDINGS: The visualized lung bases are unremarkable. The visualized portions of the heart are within normal limits. Normal liver. There is non-visualization of the gallbladder, which may be secondary to either contraction or a prior cholecystectomy. Normal spleen. Normal pancreas. Normal bilateral adrenal glands. No acute findings of the right kidney. No acute findings of the left kidney. Normal visualized stomach. Normal small intestine. Stool throughout the colon. There is non-visualization of the appendix. There are no acute findings of the abdominal aorta. Normal inferior vena cava. Subcentimeter mesenteric lymph nodes. Normal urinary bladder. There is absence of the uterus consistent with a prior hysterectomy. Normal abdominal wall. Normal osseous structures. IMPRESSION: (NOT LISTED IN ORDER OF SIGNIFICANCE) There are no acute findings. Other findings as above. Electronically Signed: Matthew James MD at 19:21 [facility] , CT/Abdomen/Pelvis W IV Cont ONLY
[2021-04-07] MEDS: 0.9% Normal Saline 1,000 ML 999 ML IV (17:57)
[2021-04-07] MEDS: DiphenhydrAMINE 50 MG/ML Syringe IV (17:57)
[2021-04-07 18:18] LABS: Lipase 161 U/L (73-393)
--- NOTE | 2021-04-07 18:19 | EX.ED.DYSGE1 ---
HPI History of Present Illness Chief Complaint: Abn Labs Informant: patient Narrative Narrative: Patient is a 51-year-old female denies any significant past medical history except for cholecystectomy presenting for new onset jaundice. Patient states she started to have urinary frequency and dysuria about 2 weeks ago. She had a telehealth visit on , 1 week ago and was prescribed Bactrim. She notes for the following 3 days after that she had fevers and vomiting. She followed up in the office and had a urine culture sent. Over the past 2 days she has been feeling better however she is then started to have yellow discoloration of her skin. She had outpatient lab work that showed a new onset of jaundice and transaminitis. She had outpatient work-up including right upper quadrant ultrasound, hepatitis panel and liver enzymes. Her primary care provider spoke with GI who recommend she come to the ED for CT and further evaluation. Patient denies any history of blood transfusion, hepatitis or IV drug use. She only occasionally takes Tylenol. No she had been having some mild pain in her left flank but that has since resolved. Denies any known history of any familiar disorder such as G6PD deficiency. [facility] Medical History (Updated 04/07/21 @ 21:[address] Olamide Williamson, DO) Abdominal pain Gallstone GERD (gastroesophageal reflux disease) Nausea Sleep apnea Weight gain Home Medications budesonide-formoterol 2 puff INHALATION Q6H PRN PRN 04/24/13 [History Last Taken Unknown] omeprazole 20 mg PO QHS 04/24/13 [History Last Taken Unknown] fluticasone propionate 1 spray NASAL QHS 12/14/18 [History Last Taken Unknown] prednisone 60 mg PO DAILY #42 tab 04/07/21 [Rx Last Taken Unknown] Allergy/AdvReac Type Severity Reaction Status Date / Time iodine Allergy Other Verified 12/27/18 13:06 oxycodone [From Percocet] Allergy Itching Verified 12/27/18 13:06 Sulfa (Sulfonamide Allergy NEEDS Verified 04/07/21 16:56 Antibiotics) FOLLOW-UP Family History Grandfather Cancer esophageal cancer Surgical History History of History of hysterectomy S/P laparoscopic cholecystectomy Social History (Updated 12/27/18 @ 14:33 by Edna LYNCH, PA-C) Smoking Status: Never smoker alcohol intake: current alcohol intake frequency: a few times a month substance use type: does not use ROS ROS ED Constitutional Constitutional ED: Reports chills and fever(s) Eyes Eyes: Denies change in vision ENT ENT ED: Denies ear pain or sore throat Cardiovascular Cardiovascular: Denies chest pain Respiratory/Chest Respiratory/Chest: Denies cough or dyspnea Gastrointestinal Gastrointestinal: Reports nausea and vomiting; Denies abdominal pain or diarrhea Genitourinary Genitourinary ED: Reports dysuria, urinary frequency and other Details: orange urine ; Denies hematuria Musculoskeletal Musculoskeletal: Denies arthralgias or myalgias Integumentary Reports other Details: yellow skin changes ; Denies rash Neurologic Neurologic: Reports weakness; Denies headache(s) Psychiatric Psychiatric: Denies depression EXAM Physical Exam Const Vital Signs: 04/07/21 16:52 04/07/21 21:03 Temperature 97.1 F L Temperature Source Temporal Pulse Rate 108 H Respiratory Rate 15 18 Blood Pressure 143/96 H Blood Pressure Mean 111 Pulse Ox 99 Oxygen Delivery Method Room Air Positive well nourished and well developed General Appearance ED: well developed and NAD HEENT Reports moist mucous membranes Negative for trauma Eyes PERRL and EOMs intact bilaterally General Eye ED: Yes scleral icterus Neck no lymphadenopathy, supple and no JVD Chest Wall inspection of chest normal Resp normal respiratory effort and clear to auscultation bilaterally Cardio regular rate, regular rhythm and no murmurs GI normal to inspection, nondistended, normoactive bowel sounds, non-tender and non-distended; Negative for hepatosplenomegaly Palpation: soft Back/Spine no CVA tenderness Extremity normal to inspection General Extremety ED: Negative for edema or tenderness General Extremity: Negative for edema Neuro oriented x3 and CN's II-XII intact bilaterally Sensorium / Orientation: alert Motor Exam: Negative for general weakness Psych mental status grossly normal Skin no rashes or lesions noted Skin Narrative: very mild jaundice MDM MDM MDM Narrative Medical decision making narrative: Patient evaluated for new onset painless jaundice. She had outpatient liver ultrasound as well as hepatitis panel and other labs drawn today. There was concern that patient require CT scan and need further evaluation by GI so she was sent to the emergency room. Patient states she is actually feeling better. Differential includes medication/drug hepatitis, autoimmune hepatitis or viral hepatitis. Patient does not have any significant risk factors for hepatitis B/C is not having diarrhea consistent with hepatitis A. Coags checked as well as cholesterol panel and lipase which was on [address] of the abdomen pelvis obtained which does not show any acute process. Liver ultrasound shows fatty liver with a normal common bile duct. Case is discussed with REY Trotter on-call, who requests that I order various labs including ferritin, LDH autoimmune labs and protein electrophoresis. Patient states that she would like to go home and follow-up outpatient. Given that she is clinically improving, GI is agreeable with this. She is started on 60 mg daily of prednisone. She will call the office for GI tomorrow to arrange close outpatient follow-up. Patient is counseled likely she might require liver biopsy for definitive diagnosis. Patient is counseled on signs and symptoms requiring return to the emergency room. Patient verbalizes agreement and understand this plan. Patient discharged home in stable and improved condition. Lab Data Attestation: I reviewed the patient's lab results. Labs: Laboratory Results - last 24 hr 04/07/21 04/07/21 04/07/21 17:55 17:55 17:55 PT INR APTT Ferritin 1788 H Lactate Dehydrogenase 412 H Triglycerides 155 Cholesterol 236 H LDL Cholesterol 195 H VLDL Cholesterol 31 HDL Cholesterol 10 L Lipase 161 04/07/21 20:32 PT 12.5 INR 1.0 APTT 30.7 Ferritin Lactate Dehydrogenase Triglycerides Cholesterol LDL Cholesterol VLDL Cholesterol HDL Cholesterol Lipase Radiography Diagnostic Testing: Clinical Impression(s) from Imaging Studies Abdomen/Pelvis CT 04/07/21 17:46 Discharge Plan Triage Chief Complaint: Abn Labs ED Provider: Olamide Williamson Dx/Rx/DC Orders Clinical Impression: Jaundice Prescriptions: New prednisone 20 mg tablet 60 mg PO DAILY Qty: 42 RF: 0 No Action omeprazole 20 MG capsule 20 mg PO QHS RF: 0 budesonide-formoterol 1 INHALER inhaler 2 puff inhalation Q6H PRN PRN (Reason: Asthma) RF: 0 fluticasone propionate 1 SPRAY spray,suspension 1 spray NASAL QHS RF: 0 Primary Care Provider: Liana Morfin Referrals: Liana Morfin DO [Primary Care Provider] - Arron Matos DO [STAFF PHYSICIAN] - Activity Restrictions/Additional Instructions: Call tomorrow to set up outpatient follow-up with REY, Dr. Matos. You will started on 60 mg of prednisone to take until you can be seen by the GI doctor. Return if you have worsening jaundice, fever or any worsening symptoms. Disposition Disposition: Home, Self Care Discharge Date/Time: 04/07/21 21:46
[2021-04-07 18:22] LABS: Cholesterol 236 mg/dL (200); High Density Lipoprotein 10 mg/dL; Triglycerides 155 mg/dL; Very Low Density Lipoprotein 31 mg/dL (5-40)
[2021-04-07 20:48] LABS: Prothrombin Time (Protime)PT. 12.5 SECONDS (11.7-14.9)
[2021-04-07 20:49] LABS: Partial Thromboplast Time 30.7 Seconds (24.1-36.2)
[2021-04-07 20:56] LABS: Ferritin 1788 ng/mL (8-252); LDH 412 U/L (84-246)
[2021-04-07 21:03] VITALS: RESP 18
[2021-04-07] MEDS: predniSONE 20 MG Tablet 60 MG PO (21:36)
[2021-04-09 18:54] LABS: Anti-Mitochondrial AB <20.0 Units (0.0-20.0)
[2021-04-11 14:07] LABS: Immunoglobulin A 231 mg/dL (87-352); Immunoglobulin E 7 IU/mL (6-495); Immunoglobulin G 1186 mg/dL (586-1602); Immunoglobulin M 139 mg/dL (26-217); PROEL- A/G Ratio 0.9 (0.7-1.7); PROEL- Albumin 3.3 g/dL (2.9-4.4); PROEL- Alpha-1 Globulin 0.4 g/dL (0.0-0.4); PROEL- Alpha-2 Globulin 0.9 g/dL (0.4-1.0); PROEL- Beta Globulin 1.3 g/dL (0.7-1.3); PROEL- Gamma Globulin 1.1 g/dL (0.4-1.8); PROEL- Globulin, Total 3.6 g/dL (2.2-3.9); PROEL- TOTAL PROTEIN 6.9 g/dL (6.0-8.5)
[2021-04-12 12:11] LABS: Anti-Smooth Muscle ABS 8 Units (0-19)
== END 2021-04-07 21:46 | disposition home or self-care (01) ==
PROVIDERS: Emergency Provider Emergency Medicine; PCP Internal Medicine; Visit Provider Emergency Medicine
DX: R17 Unspecified jaundice (principal); Z80.0 Family history of malignant neoplasm of digestive organs; K76.0 Fatty (change of) liver, not elsewhere classified
CPT/HCPCS: 74177; 80061; 82728; 82784; 82785; 83516; 83615; 83690; 84165; 85610; 85730; 96361; 96374; 96375; 99284; J7030; Q9967; A4216

== ENCOUNTER 2021-04-13 08:38 | Outpatient (CLI) | payer OTHER, SELFPAY ==
[2021-04-13 09:55] LABS: Erythrocyte Sedimentation Rate 26 mm/hr (0-30)
[2021-04-13 09:57] LABS: Absolute Lymphocyte Count 1.12 X10^3/uL (0.83-4.51); Absolute Neutrophil Count 10.8 X10^3/uL (2.0-7.7); Basophil# 0.02 X10^3/uL; Basophil% 0.2 % (0-1); Hematocrit 40.7 % (37-47); Hemoglobin 13.6 g/dL (12.0-15.0); Lymphocyte # 1.12 X10^3/ul (0.83-4.51); Mean Corp Hgb Conc 33.4 g/dL (32-36); Mean Corpuscular Hgb 29.2 pg (27.0-32.0); Mean Corpuscular Volume 87.3 fL (81-99); Monocyte% 2.4 % (0-10); NRBC Flagged by Analyzer 0 % (0-5); Neutrophil # 10.81 X10^3/uL (2.7-7.7); Platelet Count 504 K/mm3 (150-450); RBC Distribution Width CV 13.7 % (11.6-14.6); RBC Distribution Width SD 43.9 fl (35.1-43.9); Red Blood Count 4.66 M/mm3 (4.2-5.4); White Blood Count 12.4 K/mm3 (4.4-11.0)
[2021-04-13 10:28] LABS: ALB/GLOB Ratio 0.8 RATIO (0.9-2.4); AST(SGOT) 57 U/L (15-37); Alanine Aminotransfer ALT/SGPT 277 U/L (13-56); Albumin, Serum 3.4 g/dL (3.2-5.0); Alkaline Phosphatase 263 U/L (45-117); Anion Gap 7 (5-15); BUN 20 mg/dL (7-18); BUN/Creat Ratio 21.5 RATIO (10-20); CRP 7.14 mg/L (0.0-3.0); Calcium,Total 9.5 mg/dL (8.5-10.1); Chloride 106 mmol/L (98-107); Creatinine, Serum 0.93 mg/dL (0.55-1.02); EST Glomerular Filtration Rate 68 mL/min (>60); Est Glom Filt Rate - Afr Amer 82 mL/min (>60); Ferritin 290 ng/mL (8-252); GGTP 549 U/L (5-55); Globulin 4.1 g/dL (2.2-4.2); Glucose 234 mg/dL (74-106); LDH 227 U/L (84-246); Potassium 3.6 mmol/L (3.5-5.1); Protein, Total 7.5 g/dL (6.4-8.2); Sodium Level 137 mmol/L (136-145)
[2021-04-13 11:01] LABS: HIV - WCH Non-Reactive (Nonreactive)
[2021-04-13 11:33] LABS: Hemoglobin A1c 5.2 % (3.8-5.6)
[2021-04-14 15:09] LABS: Anti-Centromere B Ab <0.2 AI (0.0-0.9); Anti-Chromatin <0.2 AI (0.0-0.9); Anti-Jo <0.2 AI (0.0-0.9); Anti-Scleroderma-70 AB <0.2 AI (0.0-0.9); RNP Ab <0.2 AI (0.0-0.9); SJOGREN'S Anti-SS-A test < 0.2 AI (0.0-0.9); SJOGREN'S Anti-SS-B test < 0.2 AI (0.0-0.9); Smith Ab <0.2 AI (0.0-0.9)
[2021-04-14 18:30] LABS: Anti-Mitochondrial AB <20.0 Units (0.0-20.0); Anti-dsDNA Ab 1 IU/mL (0-9)
[2021-04-16 00:07] LABS: Angiotensin Convert Enzyme 15 U/L (14-82); Ceruloplasmin 29.5 mg/dL (19.0-39.0); Cytoplasmic Ab (C-ANCA) <1:20 titer (Neg:<1:20); IgG, Quant 1147 mg/dL (586-1602); Immunoglobulin G, Subclass 1 436 mg/dL (248-810); Immunoglobulin G, Subclass 2 533 mg/dL (130-555); Immunoglobulin G, Subclass 3 37 mg/dL (15-102); Immunoglobulin G, Subclass 4 45 mg/dL (2-96)
[2021-04-16 13:48] LABS: Anti-Smooth Muscle ABS 8 Units (0-19); Copper, Serum or Plasma 134 ug/dL (80-158); Haptoglobin 157 mg/dL (33-346); Perinuclear Ab (P-ANCA) <1:20 titer (Neg:<1:20)
== END 2021-04-13 23:59 | disposition home or self-care (01) ==
LOC: LAB 08:39
PROVIDERS: PCP Internal Medicine; Referring Provider Internal Medicine Gastroenterology; Visit Provider Internal Medicine Gastroenterology
DX: R17 Unspecified jaundice (principal); K21.9 Gastro-esophageal reflux disease without esophagitis
CPT/HCPCS: 80053; 82164; 82390; 82525; 82728; 82784; 82787; 82977; 83010; 83036; 83516; 83615; 85025; 85652; 86140; 86225; 86235; 86256; 86703

== ENCOUNTER 2021-05-05 07:48 | Outpatient (CLI) | payer OTHER, SELFPAY ==
[2021-05-05] VITALS (12 sets, daily range): BP systolic 85–185; BP diastolic 50–113; PULSE 54–98; RESP 11–31; TEMP 36.6; O2SAT 95–99; BMI 36.6
--- NOTE | 2021-05-05 07:57 | CT_ITS ---
PROCEDURE: CT DIRECTED CORE LIVER BIOPSY INDICATION: Female, 51 years old. Fatty infiltration of the liver. PHYSICIAN: Dr. FLOYD Rosas CONSENT: Written informed consent was obtained having explained the risks, benefits and alternatives in detail with the patient who accepted the risks and agreed to proceed. Laboratory review and clinical assessment was performed. CONSCIOUS SEDATION PROTOCOL: The Drugs used were: 2 mg Versed, IV., and 100 mcg Fentanyl, IV. The sedation time was: 17 minutes. Conscious sedation was started at 9:03 AM and terminated at 9:20 AM The conscious sedation protocol was independently monitored. RADIATION DOSAGE (If Supplied By Facility): CTDIvol = ( 23 ) mGy, DLP = ( 645.1 ) mGycm Individualized dose optimization techniques were used for this CT. TECHNIQUE: Using CT image guidance with image documentation, a suitable location in the left lobe of the liver was identified. Using an anterior approach, puncture of the liver was uneventful with an 18-gauge core needle system. 3, 18-gauge core samples were obtained, and submitted in formalin to the pathologist for further assessment. Followup CT scan revealed no distinct sequelae. CT/Biopsy/Inj or Needle Placement IMPRESSION: 1. CT directed core needle biopsy of the liver, using CT image guidance with image documentation as described. 2. Conscious Sedation protocol utilized with independent monitoring. Electronically Signed: Anurag Tillman MD at 9:46 EDT ,
[2021-05-05 08:03] LABS: Absolute Lymphocyte Count 1.33 X10^3/uL (0.83-4.51); Absolute Neutrophil Count 4.4 X10^3/uL (2.0-7.7); Basophil# 0.04 X10^3/uL; Basophil% 0.6 % (0-1); Eosinophil# 0.15 X10^3/uL; Eosinophils% 2.4 % (0-5); Hemoglobin 13.8 g/dL (12.0-15.0); Lymphocyte # 1.33 X10^3/ul (0.83-4.51); Mean Corp Hgb Conc 34.5 g/dL (32-36); Mean Corpuscular Hgb 29.9 pg (27.0-32.0); Mean Corpuscular Volume 86.8 fL (81-99); Mean Platelet Vol. 8.5 fl (6.2-12.0); Monocyte# 0.38 X10^3/uL; NRBC Flagged by Analyzer 0 % (0-5); Neutrophil # 4.41 X10^3/uL (2.7-7.7); Neutrophil % 69.7 % (47-70); Platelet Count 228 K/mm3 (150-450); RBC Distribution Width CV 13.2 % (11.6-14.6); Red Blood Count 4.61 M/mm3 (4.2-5.4); White Blood Count 6.3 K/mm3 (4.4-11.0)
[2021-05-05 08:18] LABS: ALB/GLOB Ratio 0.9 RATIO (0.9-2.4); AST(SGOT) 23 U/L (15-37); Alanine Aminotransfer ALT/SGPT 42 U/L (13-56); Albumin, Serum 3.6 g/dL (3.2-5.0); Alkaline Phosphatase 97 U/L (45-117); Anion Gap 2 (5-15); BUN 12 mg/dL (7-18); BUN/Creat Ratio 11.9 RATIO (10-20); Calcium,Total 9.3 mg/dL (8.5-10.1); Chloride 109 mmol/L (98-107); Creatinine, Serum 1.01 mg/dL (0.55-1.02); EST Glomerular Filtration Rate 61 mL/min (>60); Est Glom Filt Rate - Afr Amer 74 mL/min (>60); Globulin 3.8 g/dL (2.2-4.2); Glucose 102 mg/dL (74-106); Potassium 4.3 mmol/L (3.5-5.1); Protein, Total 7.4 g/dL (6.4-8.2); Sodium Level 139 mmol/L (136-145)
--- NOTE | 2021-05-05 08:30 | LIVB_PTH ---
PATIENT: KRISTA VASQUEZ LOC: CT U#:[id number] AGE/SX: 51/F ROOM: RE05/05/[address]: Dr. Arron Matos DO : 1970 BED: DIS: 05/05/2021 SPEC #: [id number] RECD: 05/05/21 09:45 STATUS: MARIEL REMandie #: [id number] LI: 05/05/21 08:[address]: Arron Matos DEPT: SURGICAL PATHOLOGY RECD BY: Marcel Pearson ENTERED: 05/05/21 12:19 SP TYPE: LIVER BX OTHR DR: Dr. Liana Morfin DO Tissues: Liver, NOS Procedures: PAS with Diastase (control) Trichrome (control) Special Stain Group II PAS Stain (control) Surgery Specimen Level V Retic (control) Iron Stain (control) HEADER OPERATION: CT-guided liver biopsy PRE-OP DIAGNOSIS: Fatty liver, hepatomegaly TISSUE SUBMITTED: Liver 18-gauge x3 MICROSCOPIC DIAGNOSIS Liver, CT-guided core biopsy: Mild macrovesicular steatosis. No evidence of hepatitis or cirrhosis. See comment. AM:joss 05/06/2021 COMMENT Trichrome stain does not reveal fibrosis. Iron stain reveals focal minimal intraparenchymal deposition of iron. PAS with and without diastase does not reveal accumulation of abnormal proteins. Reticulin stain reveals normal hepatic parenchymal architecture. All matched controls are appropriate. MICROSCOPIC DESCRIPTION Slides are reviewed. GROSS DESCRIPTION Received in fixative is one container labeled with the patient's name and designated liver biopsy. The specimen consists of three elongated fragments of arce soft tissue measuring 1 to 1.8 cm in length and 0.1 cm in diameter. The specimen is totally submitted in one cassette. / SJ:joss 05/05/2021 TC:5 CPT: 90098, 51327 x5
[2021-05-05] MEDS: fentaNYL 100 MCG/2 ML Ampul IV ×2 (09:00→09:25)
[2021-05-05] MEDS: Midazolam 2 MG/2 ML Syringe IV (09:03)
[2021-05-05] MEDS: 0.9% Saline Lock 10 ML Syringe IV (09:09)
[2021-05-05] MEDS: Lidocaine 2% (20 ml mdv) 20 ML Vial INFILT (09:10)
[2021-05-05 11:22] LABS: Prothrombin Time (Protime)PT. 12.6 SECONDS (11.7-14.9)
[2021-05-05 11:23] LABS: Partial Thromboplast Time 31.5 Seconds (24.1-36.2)
== END 2021-05-05 23:59 | disposition home or self-care (01) ==
PROVIDERS: PCP Internal Medicine; Referring Provider Internal Medicine Gastroenterology; Visit Provider Internal Medicine Gastroenterology
DX: K76.0 Fatty (change of) liver, not elsewhere classified (principal); R16.0 Hepatomegaly, not elsewhere classified
CPT/HCPCS: 47000; 36415; 77012; 80053; 85025; 85610; 85730; 88307; 88313; 99156; J7040; A4216

== ENCOUNTER → 2021-06-04 | Outpatient (CLI) | payer OTHER, SELFPAY ==
[2021-06-04 08:14] LABS: Absolute Lymphocyte Count 1.61 X10^3/uL (0.83-4.51); Absolute Neutrophil Count 4.7 X10^3/uL (2.0-7.7); Basophil# 0.06 X10^3/uL; Basophil% 0.8 % (0-1); Eosinophil# 0.13 X10^3/uL; Eosinophils% 1.8 % (0-5); Hematocrit 41.7 % (37-47); Hemoglobin 13.8 g/dL (12.0-15.0); Lymphocyte # 1.61 X10^3/ul (0.83-4.51); Lymphocyte % 22.8 % (19-41); Mean Corp Hgb Conc 33.1 g/dL (32-36); Mean Corpuscular Hgb 29.2 pg (27.0-32.0); Mean Corpuscular Volume 88.2 fL (81-99); Mean Platelet Vol. 8.5 fl (6.2-12.0); Monocyte# 0.52 X10^3/uL; Monocyte% 7.4 % (0-10); NRBC Flagged by Analyzer 0 % (0-5); Neutrophil # 4.73 X10^3/uL (2.7-7.7); Neutrophil % 66.9 % (47-70); Platelet Count 305 K/mm3 (150-450); RBC Distribution Width CV 13.2 % (11.6-14.6); RBC Distribution Width SD 42.8 fl (35.1-43.9); Red Blood Count 4.73 M/mm3 (4.2-5.4); White Blood Count 7.1 K/mm3 (4.4-11.0)
[2021-06-04 08:24] LABS: Erythrocyte Sedimentation Rate 11 mm/hr (0-30)
[2021-06-04 08:43] LABS: ALB/GLOB Ratio 0.9 RATIO (0.9-2.4); AST(SGOT) 32 U/L (15-37); Alanine Aminotransfer ALT/SGPT 37 U/L (13-56); Albumin, Serum 3.6 g/dL (3.2-5.0); Alkaline Phosphatase 83 U/L (45-117); Anion Gap 5 (5-15); BUN 15 mg/dL (7-18); BUN/Creat Ratio 15.2 RATIO (10-20); Calcium,Total 8.8 mg/dL (8.5-10.1); Chloride 107 mmol/L (98-107); Creatinine, Serum 0.99 mg/dL (0.55-1.02); EST Glomerular Filtration Rate 63 mL/min (>60); Est Glom Filt Rate - Afr Amer 76 mL/min (>60); Ferritin 63 ng/mL (8-252); Globulin 3.8 g/dL (2.2-4.2); Glucose 103 mg/dL (74-106); LDH 232 U/L (84-246); Protein, Total 7.4 g/dL (6.4-8.2); Sodium Level 138 mmol/L (136-145)
[2021-06-08 16:09] LABS: Cytoplasmic Ab (C-ANCA) <1:20 titer (Neg:<1:20)
[2021-06-08 18:40] LABS: Perinuclear Ab (P-ANCA) <1:20 titer (Neg:<1:20)
== END | disposition home or self-care (01) ==
PROVIDERS: PCP Internal Medicine; Referring Provider Internal Medicine Gastroenterology; Visit Provider Internal Medicine Gastroenterology
DX: R17 Unspecified jaundice (principal)
CPT/HCPCS: 36415; 80053; 82728; 83615; 85025; 85652; 86140; 86256

== ENCOUNTER → 2021-06-09 | Outpatient (CLI) | payer OTHER, SELFPAY ==
[2021-06-09 14:12] LABS: T3 Total - Triiodothyronine 1.24 ng/mL (0.6-1.81)
[2021-06-09 14:17] LABS: CPK Total, Creatine Kinase 42 U/L (26-192); Free T3 2.8 pg/mL (2.18-3.98); GGTP 58 U/L (5-55); T4 Free Direct 1.06 ng/dL (0.76-1.46); Thyroid Stim Hormone (TSH) 2.34 uIU/mL (0.358-3.74)
[2021-06-12 00:07] LABS: Endomysial Antibody IgA Negative (Negative); Immunoglobulin A 180 mg/dL (87-352)
[2021-06-12 10:39] LABS: Anti-Thyroglobulin AB < 1.0 IU/mL (0.0-0.9); Thyroglobulin, Serum Qt. 22.7 ng/mL (1.5-38.5); Thyroid Peroxidase AB 58 IU/mL (0-34); t-Transglutaminase IgA <2 U/mL (0-3)
== END | disposition home or self-care (01) ==
LOC: LAB 13:08
PROVIDERS: PCP Internal Medicine; Referring Provider Nurse Practitioner Adult Health; Visit Provider Nurse Practitioner Adult Health
DX: M79.604 Pain in right leg (principal); M79.605 Pain in left leg; R79.82 Elevated C-reactive protein (CRP); K76.0 Fatty (change of) liver, not elsewhere classified; R74.8 Abnormal levels of other serum enzymes; K21.9 Gastro-esophageal reflux disease without esophagitis; E03.9 Hypothyroidism, unspecified
CPT/HCPCS: 36415; 82550; 82784; 82977; 83516; 84432; 84439; 84443; 84480; 84481; 86255; 86376; 86800

== ENCOUNTER → 2021-06-25 | Outpatient (CLI) | payer OTHER, SELFPAY ==
--- NOTE | 2021-06-25 06:22 | MRI_ITS ---
STUDY: MR MRCP WITHOUT CONTRAST REASON FOR EXAM: Female, 51 years old. elevated GGT level with abdominal pain TECHNIQUE: Standard MRCP technique was utilized. 3-D postprocessing images were reviewed. COMPARISON: 04/07/2021 FINDINGS: Gall Bladder: Nonvisualization of the gallbladder. Cystic duct: Normal with no demonstrated fixed filling defect. Intrahepatic ducts: Normal visualized intrahepatic ducts with no demonstrated fixed filling defect, dilation or stricture. Common hepatic duct: Normal with no demonstrated fixed filling defect, dilation or stricture. Common bile duct: Normal with no demonstrated fixed filling defect, dilation or stricture. Pancreatic duct: Normal with no demonstrated fixed filling defect, dilation or stricture. MRI/MRCP Abdomen without Contrast IMPRESSION: Nonvisualization of the gallbladder, likely surgically absent. Otherwise normal MR Cholangiopancreatography (MRCP). Electronically Signed: Rich Gee MD at 17:14 EDT ,
== END | disposition home or self-care (01) ==
LOC: MRI 06:22
PROVIDERS: PCP Internal Medicine; Referring Provider Internal Medicine Gastroenterology; Visit Provider Internal Medicine Gastroenterology
DX: I49.3 Ventricular premature depolarization (principal)
CPT/HCPCS: 74181

== ENCOUNTER → 2021-07-01 | Outpatient (CLI) | payer OTHER, SELFPAY ==
--- NOTE | 2021-07-01 17:23 | US_ITS ---
STUDY: THYROID ULTRASOUND REASON FOR EXAM: Female, 51 years old. THYROID NODULE TECHNIQUE: Ultrasound evaluation of the thyroid was performed with real-time and static christianson-scale imaging. COMPARISON: 10.22.18. FINDINGS: RIGHT LOBE: The right lobe of the thyroid gland measures 4.3 x 1.7 cm. There is a heterogeneous echotexture. Single nodule visualized measures 5 x 4 x 2 mm. The lesion is solid with regular margins and brenda nodular doppler flow. LEFT LOBE: The left lobe of the thyroid gland measures 4 x 1.3 cm. There is a heterogeneous echotexture. There are nodules. These measure 5 x 3 mm and 4 x 3 mm. ISTHMUS: The isthmus measures 3 mm. Right neck lymph node measures 19 x 6 x11 mm US/Thyroid IMPRESSION: There is a decrease in size and number of RIGHT nodules. This nodule is solid or almost completely solid, anechoic, [id number], smoothly marginated and contains no echogenic foci. TI-RADS points: 2. TI-RADS category: TR2. This nodule is not suspicious and no FNA or follow-up is necessary. There is decrease in the size of the left nodules. This nodule is solid or almost completely solid, hyperechoic or isoechoic, [id number], smoothly marginated and contains no echogenic foci. TI-RADS points: 3. TI-RADS category: TR3. This nodule is mildly suspicious but no FNA or follow-up is necessary given the small size of this nodule. Electronically Signed: Matthew James MD at 20:42 EDT ,
== END | disposition home or self-care (01) ==
LOC: US 17:20
PROVIDERS: PCP Internal Medicine; Visit Provider Internal Medicine
DX: E04.1 Nontoxic single thyroid nodule (principal)
CPT/HCPCS: 76536

== ENCOUNTER → 2021-08-24 | Outpatient (CLI) | payer OTHER, SELFPAY ==
--- NOTE | 2021-08-24 09:00 | BD_ITS ---
STUDY: DUAL ENERGY X-RAY ABSORPTIOMETRY / DXA REASON FOR EXAM: Female, 51 years old. M85.89 TECHNIQUE: Bone Mineral Density (BMD) measurements of lumbar spine and bilateral hips were obtained. COMPARISON: Comparison is made with prior study dated 09/15/2016. FINDINGS: Lumbar Spine (L1-L4): g/cm2 (0.727) / T-score (-2.9) / Z-score (-2.1) Findings are suggestive of osteoporosis with a high fracture risk. Left Femur Total: g/cm2 (0.848) / T-score (-0.8) / Z-score (-0.2) Left Femoral Neck: g/cm2 (0.689) / T-score (-1.4) / Z-score (-0.6) Right Femur Total: g/cm2 (0.856) / T-score (-0.7) / Z-score (-0.2) Right Femoral Neck: g/cm2 (0.698) / T-score (-1.4) / Z-score (-0.5) The T-Scores on the most recent prior examination were: Lumbar Spine (L1-L4): There has been worsening of bone density since the previous examination. Left Femur Total: which represents a worsening of 7.6%. Right Femur Total: which represents a worsening of 2.4%. BD/Dexa Bone Density Study IMPRESSION: The patient is considered osteoporotic as outlined below according to World Star Organization (WHO) criteria with a high fracture risk. There has been worsening of bone density since the previous examination. Reference Information: The T-score is the number of standard deviations above or below the standard which is normal for young adults at their peak bone mineral density. The World Health Organization (WHO) interprets the T-scores as follows: Above -1 Normal bone density Between -1 and -2.5 Osteopenia Equal to / or below -2.5 Osteoporosis As a practical clinical guideline, osteopenia may be graded as follows: Mild -1 through -1.5 Moderate -1.6 through -2.0 Severe -2.1 through -2.4 The Z-score is the number of standard deviations above or below age-matched controls. A Z-score of less than -1.5 would be considered abnormal. References: 1. NIH Osteoporosis and Related Bone Diseases www osteo.org 2. International Society for Clinical Densitometry www iscd.org 3. National Osteoporosis Foundation www nof.org Electronically Signed: Anurag Tillman MD at 9:58 EDT ,
== END | disposition home or self-care (01) ==
PROVIDERS: PCP Internal Medicine; Visit Provider Internal Medicine
DX: M85.89 Other specified disorders of bone density and structure, multiple sites (principal)
CPT/HCPCS: 77080

== ENCOUNTER → 2021-08-30 | Outpatient (CLI) | payer OTHER, SELFPAY ==
--- NOTE | 2021-08-30 08:23 | CDU_ITS ---
Reason For Study: Carotid Stenosis Rt. Velocities/BP Lt. Velocities/BP Prox CCA 79/22 cm/sec. Prox CCA 74/21 cm/sec. Mid CCA 70/11 cm/sec. Mid CCA 86/20 cm/sec. Dist CCA 67/20 cm/sec. Dist CCA 81/25 cm/sec. Prox ICA 76/17 cm/sec. Prox ICA 65/16 cm/sec. Mid ICA 80/31 cm/sec. Mid ICA 82/28 cm/sec. Dist ICA 68/27 cm/sec. Dist ICA 67/29 cm/sec. Rt. ICA/CCA = 1.1. Lt. ICA/CCA = 0.9. Prox ECA 93/16 cm/sec. Prox ECA 104/20 cm/sec. Rt. Vert. 48/17 cm/sec. Lt. Vert. 49/15 cm/sec. Right Extracranial There is homogeneous, smooth atherosclerotic plaque noted in the right common carotid artery. There is heterogeneous, irregular atherosclerotic plaque noted in the right internal carotid artery. There is no significant atherosclerotic plaque noted in the right external carotid artery. Antegrade flow is noted in the right vertebral artery. Left Extracranial There is intimal thickening but no significant atherosclerotic plaque noted in the left common carotid artery. There is intimal thickening but no significant atherosclerotic plaque noted in the left internal carotid artery. There is no significant atherosclerotic plaque noted in the left external carotid artery. Antegrade flow is noted in the left vertebral artery. Procedure Carotid Duplex 93162. This is a Carotid Duplex examination using B-mode, color flow and specral Doppler. Exam performed in department. VL/Carotid Duplex Ultrasound Interpretation Summary Mild (<50%) stenosis right extracranial internal carotid. Mild (<50%) stenosis left extracranial internal carotid. Flow within the vertebral arteries is antegrade bilaterally. Ordering Physician: Liana Morfin Referring Physician: Liana Morfin Performed By: Charlotte Gorman, ROSA, RVT
== END | disposition home or self-care (01) ==
LOC: CVS 08:18
PROVIDERS: PCP Internal Medicine; Referring Provider Internal Medicine; Visit Provider Internal Medicine
DX: I65.23 Occlusion and stenosis of bilateral carotid arteries (principal)
CPT/HCPCS: 93880

== ENCOUNTER → 2021-12-22 | Outpatient (CLI) | payer OTHER, SELFPAY ==
--- NOTE | 2021-12-22 16:17 | RAD_ITS ---
EXAM: XR CERVICAL SPINE, 2 OR 3 VIEWS CLINICAL INDICATION: CERVICAL RADICULOPATHY TECHNIQUE: Frontal and lateral views of the cervical spine. This report was created using Smart[employer] report 5o9 technology. COMPARISON: None. FINDINGS: VERTEBRAE: Unremarkable. Preserved vertebral body height. No acute fracture. No spondylolisthesis. Preservation of the normal cervical lordosis. No significant facet arthropathy. DISC SPACES: Degenerative changes of the lower cervical spine at C5/6 and C6/7 with disc height loss and osteophyte formation. SOFT TISSUES: Unremarkable. No prevertebral soft tissue widening. LUNG APICES: Clear. RAD/Cerv Spine 2 or 3 Views IMPRESSION: Degenerative changes of the lower cervical spine at C5/6 and C6/7. Electronically Signed: Matthew Ruggiero MD at 2:26 EST ,
== END | disposition home or self-care (01) ==
LOC: MTRAD 16:15
PROVIDERS: PCP Internal Medicine; Referring Provider Internal Medicine; Visit Provider Internal Medicine
DX: M54.12 Radiculopathy, cervical region (principal)
CPT/HCPCS: 72040

== ENCOUNTER → 2022-01-18 | Outpatient (CLI) | payer OTHER, SELFPAY ==
--- NOTE | 2022-01-18 07:40 | BI_ITS ---
MAMMOGRAPHY - BILATERAL SCREENING REASON FOR EXAM: Female, 51 years old. Routine annual screening examination. PERTINENT HISTORY: Non-contributory. TECHNIQUE: Digital bilateral breast marianna (3D mammographic acquisition) in the CC and MLO projections. 2-D mediolateral oblique (MLO) and craniocaudad (CC) views of both breasts were obtained. CAD: Full Field Digital Mammography with Computer Added Detection was performed. COMPARISON: Comparison is made with prior study dated 12/23/2020 and 12/23/2019. FINDINGS: Breast Composition: There are scattered areas of fibroglandular density. There are no dominant masses or suspicious calcifications. No other significant abnormalities are identified. There has been no significant change since the prior study. BI/SCRN MAMM (CAD)W/MARIANNA BILAT IMPRESSION: Stable bilateral screening mammogram. Yearly follow-up mammogram recommended. (A) ASSESSMENT CATEGORY: BIRADS Category 1: Negative. A letter regarding these results will be sent to the patient by the facility within 30 days. Approximately 10% of breast cancers are not detected by mammography. A normal mammogram should not delay biopsy of a clinically suspicious abnormality. [id number] Electronically Signed: Anurag Tillman MD at 8:44 EST ,
== END | disposition home or self-care (01) ==
LOC: OPBI 07:39
PROVIDERS: PCP Internal Medicine; Visit Provider Internal Medicine
DX: Z12.31 Encounter for screening mammogram for malignant neoplasm of breast (principal)
CPT/HCPCS: 77063; 77067

== ENCOUNTER 2022-01-21 07:00 | Outpatient (RCR) | payer OTHER, SELFPAY ==
--- NOTE | 2021-12-29 08:11 | HP.PTEVAL ---
Patient's Visit Information KRISTA VASQUEZ is a 51 year old F referred to Physical Therapy by Dr. Liana Morfin DO with a diagnosis of Neck pain with radiculopathy. Date of Evaluation: 12/29/21 Physical Therapist: Matthew Chacon, PT, ATC - Visit Plan Frequency: 2x /Week Duration: 3 Weeks Plan: Postural education, c/s RRIS, scap stab ex's, DTR, UBE, and HEP - Subjective Pt reports neck pain that has been present for greater than one month. Pt notes the pain has progressively worsened over this time period. Pt reports her pain radiates into her L upper trap region. Pt denies any L UE radiculopathy at this time. 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 Pt believes this may be causing some of her problem. Pt also notes she has difficulty with driving at this time secondary to pain. Pt reports she feels relief when she sits at home with a moist HP at night. Pt reports she had xrays taken which revealed osteoprosis and DDD. Pt reports occasional sleep difficulty secondary to her neck pain. Pt reports she likes to exercise, and notes running will tend to increase her pain. 4/10 pain in c/s at rest, 9/10 pain at worst. - Pain Neck pain Pain Intensity (Out of 10): 4 Pain Intensity Range: 9 - Objective Neuro: B UE sensation is WNL to light touch. B bicipital reflex= 2/3. MMT: B UE's are grossly rated at 5/5 throughout. ROM: B UE's are WFL when compared bilaterally. C/S is WNL with exception to retraction and extension. Repeated movements: RPIS 10x3 increased soreness in C/S. RRIS 10x3 increased soreness in C/S as well. Special tests: All tests were negative - Balance/Special Test Scores Oswestry Neck Score: 8 - Goals Goal 1:: Decrease neck pain x 50% to aid with sleep Goal Time Frame: 4-6 Weeks Goal 2:: Increase c/s ext and retraction ROM x 1 grade to aid with decreasing pain. Goal Time Frame: 4-6 Weeks Goal 3:: Pt will verbally and physically display proper posture to aid with preventing future episodes of neck pain Goal Time Frame: 4-6 Weeks Goal 4:: I with HEP Goal Time Frame: 4-6 Weeks - Rehabilitation Potential Physical Therapy Diagnosis: Pt has neck pain and L upper trap radiculopathy secondary to poor posture Rehabilitation Potential: Good - Anticipated Interventions Patient/Client Instruction: Educate patient on: Condition, Plan of Care For the Purpose of:: To improve self management Therapeutic Exercise to Include: Strength training, Body mechanics, Postural training, Active ROM, Scapular Strength/Stabilization For the Purpose of:: To decrease pain, To increase ROM, To improve muscle performance and motor function Thermo therapy (hot pack): Yes Ultrasound (thermal/non thermal): Yes For the Purpose of:: To decrease pain Thank you for the opportunity to evaluate your patient. For Medicare and Medicare HMO plans, please review the plan of care and approve it. It will need to be FAXED BACK to us at [phone] for Medicare purposes. For Medicare only, by signing this I certify the plan of care. Please let me know if there are questions or concerns regarding this plan of care. Physician Signature: Date:
--- NOTE | 2022-05-19 17:17 | HP.PT.NRP ---
KRISTA VASQUEZ was seen in my office for initial evaluation on 12/29/21. The following Plan of Care was established for this patient: Initial Frequency: 2x /Week Initial Duration: 3 Weeks Patient/Client Instruction: Educate patient on: Condition, Plan of Care For the Purpose of:: To improve self management Therapeutic Exercise to Include: Strength training, Body mechanics, Postural training, Active ROM, Scapular Strength/Stabilization For the Purpose of:: To decrease pain, To increase ROM, To improve muscle performance and motor function Thermo therapy (hot pack): Yes Ultrasound (thermal/non thermal): Yes For the Purpose of:: To decrease pain This patient was last seen in our office . Pertinent comments regarding their Physical therapy will appear below: Pt was treated for 7 PT visits for neck pain through the date of 01/21/22. Pt has not returned through todays date and is discontinued at this time. At this point I will be discontinuing this patient from physical therapy. I would be happy to see this patient again in the future if found appropriate by the physician. Thank you! Matthew Chacon, PT, ATC Balance/Gait/Functional tests - Balance/Special Test Scores Oswestry Neck Score: 8
== END 2022-01-21 19:00 | disposition home or self-care (01) ==
LOC: PT 07:00
PROVIDERS: PCP Internal Medicine; Referring Provider Internal Medicine; Visit Provider Internal Medicine
DX: M54.12 Radiculopathy, cervical region (principal)
CPT/HCPCS: 97140; 97161

== ENCOUNTER → 2022-02-01 | Outpatient (CLI) | payer OTHER, SELFPAY ==
[2022-02-01 10:48] LABS: T4 Free Direct 1.04 ng/dL (0.76-1.46); Thyroid Stim Hormone (TSH) 2.36 uIU/mL (0.358-3.74)
== END | disposition home or self-care (01) ==
LOC: MTLAB 07:27
PROVIDERS: PCP Internal Medicine
DX: E04.2 Nontoxic multinodular goiter (principal)
CPT/HCPCS: 36415; 84439; 84443

== ENCOUNTER → 2022-05-04 | Outpatient (CLI) | payer OTHER, SELFPAY ==
--- NOTE | 2022-05-04 07:31 | US_ITS ---
STUDY: ABDOMINAL ULTRASOUND - ELASTOGRAPHY REASON FOR VISIT: Female, 52 years old. Fatty infiltration of the liver. TECHNIQUE: Liver stiffness measurements were obtained on a [employer] RS 85 ultrasound machine using a CA 1-7 probe following the SRU guidelines. 3 measurements were obtained using a 2-D-SWE method. TheIQR/M was 22 % suggesting a quality data set. TECHNICAL QUALITY: Adequate. COMPARISON: Comparison is made with prior examination done earlier today. FINDINGS: Liver: Fatty infiltration of the liver. Median liver stiffness measured 5.3 kPa. US/Elastography Parenchyma/Organ IMPRESSION: Liver stiffness measures 5.3 kPa compatible with F0-F1 (Normal to mild liver fibrosis) Metavir score. Electronically Signed: Anurag Tillman MD at 15:44 EDT ,
--- NOTE | 2022-05-04 07:31 | US_ITS ---
STUDY: ABDOMINAL ULTRASOUND - RIGHT UPPER QUADRANT REASON FOR VISIT: Female, 52 years old repeat elastography . Fatty infiltration of the liver. TECHNIQUE: Ultrasound evaluation of the right upper quadrant was performed with real-time and static christianson-scale imaging. TECHNICAL QUALITY: Adequate. COMPARISON: Comparison is made with prior study dated April 07, 2021. FINDINGS: Liver: The liver measures 16.2 cm. There is increased echogenicity consistent with fatty infiltration. The bile ducts are within normal limits. There is hepatic color flow. The direction of portal flow is hepatopetal. There is no demonstrated mass lesion. Gallbladder: The patient is status post cholecystectomy. Common Bile Duct (C.B.D.): The common bile duct measures 4.6 mm. Pancreas: Normal size of the head, body and tail of the pancreas. There is normal echogenicity of the pancreas. There is no demonstrated pancreatic mass or cyst. Right Kidney: Normal size of the right kidney. The right kidney measures 10.6 cm x 5.2 cm x 3.9 cm. Normal renal cortex. The right cortex measures 1.2 cm. There is no demonstrated renal mass or cyst. There is no right hydronephrosis. US/Abdomen Limited IMPRESSION: Fatty infiltration of the liver. Status post cholecystectomy. Electronically Signed: Anurag Tillman MD at 15:43 EDT ,
== END | disposition home or self-care (01) ==
PROVIDERS: PCP Internal Medicine; Referring Provider Nurse Practitioner Adult Health; Visit Provider Nurse Practitioner Adult Health
DX: K76.0 Fatty (change of) liver, not elsewhere classified (principal)
CPT/HCPCS: 76705; 76981

== ENCOUNTER → 2022-05-24 | Outpatient (CLI) | payer OTHER, SELFPAY ==
[2022-05-24 08:54] LABS: Absolute Lymphocyte Count 1.84 X10^3/uL (0.83-4.51); Absolute Neutrophil Count 4.3 X10^3/uL (2.0-7.7); Basophil# 0.06 X10^3/uL; Basophil% 0.9 % (0-1); Eosinophil# 0.14 X10^3/uL; Eosinophils% 2.1 % (0-5); Hematocrit 42.6 % (37-47); Hemoglobin 13.9 g/dL (12.0-15.0); Lymphocyte # 1.84 X10^3/ul (0.83-4.51); Lymphocyte % 27.1 % (19-41); Mean Corp Hgb Conc 32.6 g/dL (32-36); Mean Corpuscular Hgb 28.7 pg (27.0-32.0); Mean Platelet Vol. 8.6 fl (6.2-12.0); Monocyte% 7.4 % (0-10); NRBC Flagged by Analyzer 0 % (0-5); Neutrophil # 4.25 X10^3/uL (2.7-7.7); Neutrophil % 62.4 % (47-70); Platelet Count 274 K/mm3 (150-450); RBC Distribution Width CV 12.9 % (11.6-14.6); RBC Distribution Width SD 41.6 fl (35.1-43.9); Red Blood Count 4.84 M/mm3 (4.2-5.4); White Blood Count 6.8 K/mm3 (4.4-11.0)
[2022-05-24 09:28] LABS: Erythrocyte Sedimentation Rate 6 mm/hr (0-30)
[2022-05-24 09:29] LABS: ALB/GLOB Ratio 1.1 RATIO (0.9-2.4); AST(SGOT) 26 U/L (15-37); Alanine Aminotransfer ALT/SGPT 32 U/L (13-56); Albumin, Serum 3.7 g/dL (3.2-5.0); Alkaline Phosphatase 82 U/L (45-117); Anion Gap 3 (5-15); BUN 14 mg/dL (7-18); BUN/Creat Ratio 14.8 RATIO (10-20); Calcium,Total 9.2 mg/dL (8.5-10.1); Chloride 108 mmol/L (98-107); Creatinine, Serum 0.94 mg/dL (0.55-1.02); EST Glomerular Filtration Rate 66 mL/min (>60); Est Glom Filt Rate - Afr Amer 80 mL/min (>60); Ferritin 67 ng/mL (8-252); GGTP 53 U/L (5-55); Globulin 3.5 g/dL (2.2-4.2); Glucose 100 mg/dL (74-106); LDH 213 U/L (84-246); Potassium 4.2 mmol/L (3.5-5.1); Protein, Total 7.2 g/dL (6.4-8.2); Sodium Level 138 mmol/L (136-145)
== END | disposition home or self-care (01) ==
LOC: LAB 08:37
PROVIDERS: PCP Internal Medicine; Referring Provider Nurse Practitioner Adult Health; Visit Provider Nurse Practitioner Adult Health
DX: K76.0 Fatty (change of) liver, not elsewhere classified (principal)
CPT/HCPCS: 36415; 80053; 82728; 82977; 83615; 85025; 85652; 86140

== ENCOUNTER 2022-06-22 10:43 | Day surgery (SDC) | payer OTHER, SELFPAY ==
--- NOTE | 2022-06-22 | ESO_PTH ---
PATIENT: KRISTA VASQUEZ LOC: EN U#:[id number] AGE/SX: 52/F ROOM: RE06/22/[address]: Dr. Arron Matos DO : 1970 BED: DIS: 06/22/2022 SPEC #: [id number] RECD: 06/22/22 13:48 STATUS: MARIEL LIGHT #: [id number] LI: 06/22/22 00:[address]: Arron Matos DEPT: SURGICAL PATHOLOGY RECD BY: Pranay Landeros ENTERED: 06/23/22 11:51 SP TYPE: JENNIFER CERVANTES DR: Dr. Liana Morfin DO Tissues: Esophagus, NOS Procedures: Special Stain Group II Surgery Specimen Level IV Alcian Blue/PAS (control) HEADER OPERATION: [place] [place] PRE-OP DIAGNOSIS: Nonalcoholic fatty liver disease, dysphagia TISSUE SUBMITTED: Distal esophagus biopsy MICROSCOPIC DIAGNOSIS Distal esophagus, biopsy: Gastroesophageal junctional mucosa with mild chronic inflammation. Focal changes of reflux. No evidence of goblet cell metaplasia. See comment. AM:joss 06/24/2022 COMMENT Alcian blue/PAS stain with matched control supports the above diagnosis. MICROSCOPIC DESCRIPTION Slides are reviewed. GROSS DESCRIPTION Received in fixative is one container labeled with the patient's name and designated distal esophagus biopsy. The specimen consists of two irregular fragments of light arce soft tissue that in aggregate measure 0.6 x 0.4 x 0.1 cm. The specimen is totally submitted in one cassette. / SJ:joss 06/23/2022 TC:3 CPT: 81952, 85422
[2022-06-22 11:11] VITALS: BP 149/94; PULSE 78; RESP 16; TEMP 36.9; O2SAT 100; BMI 37.0
--- NOTE | 2022-06-22 12:14 | PCM.HP.BLA ---
History and Physical Date of Admission: 06/22/22 52 F who presents to the office today for f/u NAFLD, GERD. Her repeat liver elastography was normal; she wonders if the initial elastography last year was abnormal due to the recent acute jaundice secondary to Bactrim. Having difficulty swallowing pills so she doesn't usually take the vitamin E, and has only been able to take ursodiol once daily rather than BID. Takes omeprazole 20 mg in evening (easier for her to remember pills in evening vs morning). GERD/bile acid reflux -- She reports since cholecystectomy in 2019 she has had bile reflux. She started omeprazole yrs before that for acid reflux. Occas needs double dose of omeprazole to manage the bile acid reflux. Grandfather has a history of Lara?s esophagus that progressed to esophageal cancer causing his . No personal hx of Lara's. Last EGD at [facility] in 09/2019.?Will plan on EGD when she is due for colonoscopy in 2022. NAFLD -- because she has a fatty liver in the setting of acute liver injury she had a liver biopsy on 05/05/2021, result was mild macrovesicular steatosis, no evidence of hepatitis or cirrhosis. US liver and elastography 04/07/2021: fatty infiltration of the liver without mass or lesion, CBD measures 3.3mm, Liver stiffness 8.4 kPa. Repeat liver elastography 04/2022: liver stiffness 5.3 kpa (F0-F1 Metavir). Hx acute jaundice in [address] showed no acute process.? Ultrasound revealed fatty liver. She had elevated ferritin, bilirubin, GGT, AST, ALT, alk phos, LDH, CRP. Treated with IV fluids, prednisone taper. Labs normalized. Positive atypical p-ANCA -- in the GI arena this abnormal result can be related to ulcerative colitis, PSC, or autoimmune hepatitis. No evidence of PSC??, negative AMA, biliary tract normal on ultrasound, normal MRCP.? No evidence of AIH--ASMA is normal, Liver enzymes normalized.? She does have elevated CRP, as well as chronic pain in her legs and history of vascular rash on her legs; the leg pain resolved while she was on prednisone; she may have a vasculitis.? We have referred her to rheumatology for evaluation. ROS Const Constitutional: No fatigue ENT ENT: Positive for difficulty swallowing Cardio Cardiology: Positive for leg pain with exertion Gastro GI: Positive for bloating, difficulty swallowing and excessive flatus; No abdominal pain, belching, change in bowel habits, change in stool character, coffee ground emesis, constipation, cramping, diarrhea, heartburn, feeling full early, incontinent of stools, Vomiting blood/hematemesis, Blood in stool, loose stools, Black,tarry stools, nausea/dyspepsia, pain with swallowing, vomiting or other Musc Musculoskeletal: Positive for leg pain with exertion; No joint pain Skin Skin: No yellowing of the eye or itchy eyes Psych Psychiatric: No anxiety and No depression Endo Endocrine: No fatigue Aller/Imm Allergy/Immunologic: No itchy eyes Abbe/Lymp Hematologic/Lymphatic: No easy bleeding or easy bruising Exam Const General: cooperative and comfortable Orientation: alert, awake and oriented x3 Quality Reporting Tobacco Screening ([facility] 138) Smoking Status: Never smoker Assessment and Plan Assessment and Plan (1) NAFLD (nonalcoholic fatty liver disease): ?Status:?Chronic ?Plan: Fatty liver, normal stiffness on repeat elastography Stop ursodiol and vitamin E since having difficulty swallowing them and elastography is normal Consider repeat elastography in a yr Update labs today (2) Dysphagia: ?Status:?Chronic ?Plan: EGD to evaluate for Schatzki ring Will update colonoscopy then too, due for 5-yr colonoscopy because of hx of tubular adenoma ? ? ? Orders: Orders Comprehensive Metabolic Profil Today K76.0 - Fatty (change of) liver, not elsewhere classified ? CRP Today K76.0 - Fatty (change of) liver, not elsewhere classified ? Ferritin Today K76.0 - Fatty (change of) liver, not elsewhere classified ? GGTP Today K76.0 - Fatty (change of) liver, not elsewhere classified ? CBC W/Diff, Automated Today K76.0 - Fatty (change of) liver, not elsewhere classified ? Erythrocyte Sed Rate Today K76.0 - Fatty (change of) liver, not elsewhere classified ? LDH Today K76.0 - Fatty (change of) liver, not elsewhere classified ? Medications: Discontinued ursodiol ?? Discontinued Reason:? Order Completed 300 mg? PO BID 180 caps 3RF NAFLD ? ? I have examined the patient and the H&P has been reviewed. There are no clinical changes since date of exam.
[2022-06-22 12:15] VITALS: BP 123/85; BP 126/82; BP 149/94; PULSE 108; PULSE 82; RESP 16; TEMP 36.3; O2SAT 100; O2SAT 97
--- NOTE | 2022-06-22 12:19 | OP.CCLET_ITS ---
06/22/2022 Liana Morfin [address] [place] [address] Re : Upper GI endoscopy procedure for Sari Serrano Dear Dr. Morfin This procedure was performed on Wednesday, June 22, 2022. My impressions and recommendations are as follows: Impressions : - Moderate Schatzki ring. Dilated. - Medium-sized hiatal hernia. - A few gastric polyps. - Normal first portion of the duodenum. - No specimens collected. Recommendations : - Discharge patient to home. - Resume previous diet. - Continue present medications. - Await pathology results. My findings are described in the full procedure note, which is enclosed. If I can be of further assistance, please feel free to contact me at . Sincerely, Arron Matos, 06/22/2022 12:18:52 PM This report has been signed electronically.
--- NOTE | 2022-06-22 12:19 | OP.EGD_ITS ---
Patient Name: Sari Serrano Procedure Date: 06/22/2022 11:47 AM Date of : 1970 Age: 52 Procedure: Upper GI endoscopy Indications: Dysphagia Providers: Arron Matos DO Medicines: Monitored Anesthesia Care Patient Profile: This is a 52 year old female. Refer to note in patient chart for documentation of history and physical. Patient has symptoms of chronic dysphagia. Complications: No immediate complications. Procedure: Pre-Anesthesia Assessment: - Prior to the procedure, a History and Physical was performed, and patient medications and allergies were reviewed. The patient is competent. The risks and benefits of the procedure and the sedation options and risks were discussed with the patient. All questions were answered and informed consent was obtained. Patient identification and proposed procedure were verified by the physician in the pre-procedure area. Mental Status Examination: alert and oriented. Airway Examination: normal oropharyngeal airway and neck mobility. Respiratory Examination: clear to auscultation. CV Examination: normal. Prophylactic Antibiotics: The patient does not require prophylactic antibiotics. Prior Anticoagulants: The patient has taken no previous anticoagulant or antiplatelet agents. ASA Grade Assessment: II - A patient with mild systemic disease. After reviewing the risks and benefits, the patient was deemed in satisfactory condition to undergo the procedure. The anesthesia plan was to use monitored anesthesia care (MAC). Immediately prior to administration of medications, the patient was re-assessed for adequacy to receive sedatives. The heart rate, respiratory rate, oxygen saturations, blood pressure, adequacy of pulmonary ventilation, and response to care were monitored throughout the procedure. The physical status of the patient was re-assessed after the procedure. After obtaining informed consent, the endoscope was passed under direct vision. Throughout the procedure, the patient's blood pressure, pulse, and oxygen saturations were monitored continuously. The Colonoscope was introduced through the mouth, and advanced to the second part of duodenum. The upper GI endoscopy was accomplished without difficulty. The patient tolerated the procedure well. Scope In: 11:55:49 AM Scope Out: 11:59:02 AM Total Procedure Duration Time 0 hours 3 minutes 13 seconds Findings: A moderate Schatzki ring was found in the lower third of the esophagus. A guidewire was placed and the scope was withdrawn. Dilation was performed with a Savary dilator with no resistance at 45 Fr. The dilation site was examined and showed moderate improvement in luminal narrowing. Estimated blood loss was minimal. A medium-sized hiatal hernia was present. A few 2 mm sessile polyps with no bleeding and no stigmata of recent bleeding were found in the entire examined stomach. No other significant abnormalities were identified in a careful examination of the stomach. The first portion of the duodenum was normal. Impression: - Moderate Schatzki ring. Dilated. - Medium-sized hiatal hernia. - A few gastric polyps. - Normal first portion of the duodenum. - No specimens collected. Recommendation: - Discharge patient to home. - Resume previous diet. - Continue present medications. - Await pathology results. Procedure Code(s): --- Professional --- 16632, Esophagogastroduodenoscopy, flexible, transoral; with insertion of guide wire followed by passage of dilator(s) through esophagus over guide wire CPT copyright 2017 [employer]. All rights reserved. The codes documented in this report are preliminary and upon hose seamer review may be revised to meet current compliance requirements. Arron Matos DO 06/22/2022 12:18:52 PM This report has been signed electronically. Number of Addenda: 0 Note Initiated On: 06/22/2022 11:47 AM
--- NOTE | 2022-06-22 12:24 | OP.CCLET_ITS ---
06/22/2022 Liana Morfin [address] [place] [address] Re : Colonoscopy procedure for Sari Serrano Dear Dr. Morfin This procedure was performed on Wednesday, June 22, 2022. My impressions and recommendations are as follows: Impressions : - Diverticulosis in the recto-sigmoid colon, in the sigmoid colon and in the descending colon. - No specimens collected. Recommendations : - Discharge patient to home. - Resume previous diet. - Continue present medications. - Repeat colonoscopy in 5 years for surveillance. My findings are described in the full procedure note, which is enclosed. If I can be of further assistance, please feel free to contact me at . Sincerely, Arron Matos, 06/22/2022 12:24:14 PM This report has been signed electronically.
--- NOTE | 2022-06-22 12:24 | OP.COLON_ITS ---
Patient Name: Sari Serrano Procedure Date: 06/22/2022 11:59 AM Date of : 1970 Age: 52 Procedure: Colonoscopy Indications: Screening for colorectal malignant neoplasm Providers: Arron Matos DO Medicines: Monitored Anesthesia Care Patient Profile: This is a 52 year old female. Refer to note in patient chart for documentation of history and physical. Patient has symptoms of chronic dysphagia. Last Colonoscopy: 5 years ago. Complications: No immediate complications. Procedure: Pre-Anesthesia Assessment: - Prior to the procedure, a History and Physical was performed, and patient medications and allergies were reviewed. The patient is competent. The risks and benefits of the procedure and the sedation options and risks were discussed with the patient. All questions were answered and informed consent was obtained. Patient identification and proposed procedure were verified by the physician in the pre-procedure area. Mental Status Examination: alert and oriented. Airway Examination: normal oropharyngeal airway and neck mobility. Respiratory Examination: clear to auscultation. CV Examination: normal. Prophylactic Antibiotics: The patient does not require prophylactic antibiotics. Prior Anticoagulants: The patient has taken no previous anticoagulant or antiplatelet agents. ASA Grade Assessment: II - A patient with mild systemic disease. After reviewing the risks and benefits, the patient was deemed in satisfactory condition to undergo the procedure. The anesthesia plan was to use monitored anesthesia care (MAC). Immediately prior to administration of medications, the patient was re-assessed for adequacy to receive sedatives. The heart rate, respiratory rate, oxygen saturations, blood pressure, adequacy of pulmonary ventilation, and response to care were monitored throughout the procedure. The physical status of the patient was re-assessed after the procedure. After I obtained informed consent, the scope was passed under direct vision. Throughout the procedure, the patient's blood pressure, pulse, and oxygen saturations were monitored continuously. The Colonoscope was introduced through the anus and advanced to the cecum, identified by appendiceal orifice and ileocecal valve. The colonoscopy was performed without difficulty. The patient tolerated the procedure well. The quality of the bowel preparation was adequate. Scope In: 12:00:49 PM Scope Withdrawal Time 0 hours 7 minutes 38 seconds Scope Out: 12:10:52 PM Total Procedure Duration Time 0 hours 10 minutes 3 seconds Findings: The perianal and digital rectal examinations were normal. A few small and large-mouthed diverticula were found in the recto-sigmoid colon, sigmoid colon and descending colon. Impression: - Diverticulosis in the recto-sigmoid colon, in the sigmoid colon and in the descending colon. - No specimens collected. Recommendation: - Discharge patient to home. - Resume previous diet. - Continue present medications. - Repeat colonoscopy in 5 years for surveillance. Procedure Code(s): --- Professional --- 69215, Colonoscopy, flexible; diagnostic, including collection of specimen(s) by brushing or washing, when performed (separate procedure) CPT copyright 2017 [employer]. All rights reserved. The codes documented in this report are preliminary and upon marketing strategy lead review may be revised to meet current compliance requirements. Arron Matos DO 06/22/2022 12:24:14 PM This report has been signed electronically. Number of Addenda: 0 Note Initiated On: 06/22/2022 11:59 AM
[2022-06-22 12:25] VITALS: BP 136/79; BP 149/94; PULSE 78; RESP 16; O2SAT 100
[2022-06-22 12:28] VITALS: BP 131/84; BP 149/94; PULSE 76; RESP 16; O2SAT 100
[2022-06-22 12:45] VITALS: BP 149/94
== END 2022-06-22 12:50 | disposition home or self-care (01) ==
LOC: EN 10:44 → AC 10:45
PROVIDERS: PCP Internal Medicine; Referring Provider Internal Medicine; Visit Provider Internal Medicine Gastroenterology
PROC: 0DJD8ZZ Inspection of Lower Intestinal Tract, Via Natural or Artificial Opening Endoscopic (ICD-10-PCS; CPT 45378; principal; 2022-06-22 11:40)
DX: K22.2 Esophageal obstruction (principal); K44.9 Diaphragmatic hernia without obstruction or gangrene; K57.30 Diverticulosis of large intestine without perforation or abscess without bleeding; K76.0 Fatty (change of) liver, not elsewhere classified; K21.00 Gastro-esophageal reflux disease with esophagitis, without bleeding; K31.7 Polyp of stomach and duodenum; G47.30 Sleep apnea, unspecified; Z79.899 Other long term (current) drug therapy
CPT/HCPCS: 45378; 43248; 88305; 88313; J7120; J2405

== ENCOUNTER → 2022-08-03 | Outpatient (CLI) | payer OTHER, SELFPAY | END | disposition home or self-care (01) | LOC: SL 20:14 | PROVIDERS: PCP Internal Medicine; Referring Provider Nurse Practitioner Acute Care; Visit Provider Nurse Practitioner Acute Care | DX: G47.30 Sleep apnea, unspecified (principal) | CPT/HCPCS: 95811 ==

== ENCOUNTER → 2022-08-16 | Outpatient (CLI) | payer OTHER, SELFPAY ==
[2022-08-16 09:43] LABS: T4 Free Direct 0.86 ng/dL (0.76-1.46); Thyroid Stim Hormone (TSH) 3.96 uIU/mL (0.358-3.74)
== END | disposition home or self-care (01) ==
PROVIDERS: PCP Internal Medicine; Referring Provider Nurse Practitioner Acute Care; Visit Provider Nurse Practitioner Acute Care
DX: E04.2 Nontoxic multinodular goiter (principal)
CPT/HCPCS: 36415; 84439; 84443

== ENCOUNTER → 2022-08-18 | Outpatient (CLI) | payer OTHER, SELFPAY ==
--- NOTE | 2022-08-18 16:03 | US_ITS ---
INDICATION: GOITER EXAMINATION: Ultrasound US Thyroid (eg thyroid, parathyroid, parotid) TECHNIQUE: [place] scale and color doppler imaging was performed of the thyroid gland. COMPARISON: July 01, 2021, October 22, 2018, September 15, 2016. FINDINGS: RIGHT THYROID LOBE: 4.3 x 1.5 x 1.4 cm. Heterogeneous echotexture with normal vascularity. [ Nodules: 1. Anterior superior 0.7 x 0.4 x 0.5 cm solid heterogeneous hypoechoic nodule wider than tall with smooth margins and no calcifications, TI RAD 4, unchanged from September 15, 2016 LEFT THYROID LOBE: 4.0 x 1.0 x 1.7 cm. Heterogeneous echotexture with normal vascularity. [ Nodules: 1.. Anterior mid 0.5 x 0.4 x 0.3 cm solid hypoechoic nodule wider than tall smooth margins and no calcifications, TI RAD 4, unchanged from September 15, 2016 ISTHMUS: 0.4 cm.. No thyroid nodules are present. 0.8 x 1.1 x 0.5 cm lymph node with symmetric cortex and preserved fatty hilum adjacent to the right thyroid 0.8 x 0.8 x 0.5 cm and 0.8 x 0.7 x 0.7 cm lymph nodes with symmetric cortex and preserved fatty hilum adjacent to left thyroid US/Thyroid IMPRESSION: Heterogeneous thyroid parenchyma with subcentimeter TI-RAD 4 nodules that are unchanged from September 15, 2016 compatible with benign process. No specific imaging follow-up is required based on size and features per ACR TI RADS criteria. Repeat imaging may be obtained as clinically indicated. Nonspecific few bilateral lymph nodes adjacent to the thyroid without suspicious features. Electronically Signed: Ciaran Monte MD at 9:07 EDT ,
== END | disposition home or self-care (01) ==
LOC: US 16:02
PROVIDERS: PCP Internal Medicine; Referring Provider Internal Medicine Endocrinology, Diabetes & Metabolism; Visit Provider Internal Medicine Endocrinology, Diabetes & Metabolism
DX: E04.2 Nontoxic multinodular goiter (principal)
CPT/HCPCS: 76536

== ENCOUNTER → 2022-09-23 | Outpatient (CLI) | payer OTHER, SELFPAY | END | disposition home or self-care (01) | LOC: SL 09:26 | PROVIDERS: PCP Internal Medicine; Referring Provider Nurse Practitioner Acute Care; Visit Provider Nurse Practitioner Acute Care | DX: Z46.89 Encounter for fitting and adjustment of other specified devices (principal) ==

== ENCOUNTER → 2022-11-18 | Outpatient (CLI) | payer OTHER, SELFPAY ==
[2022-11-18 11:29] LABS: T4 Free Direct 1.19 ng/dL (0.76-1.46)
== END | disposition home or self-care (01) ==
LOC: LAB 10:32
PROVIDERS: PCP Internal Medicine; Referring Provider Internal Medicine Endocrinology, Diabetes & Metabolism; Visit Provider Internal Medicine Endocrinology, Diabetes & Metabolism
DX: E03.8 Other specified hypothyroidism (principal)
CPT/HCPCS: 36415; 84439; 84443

== ENCOUNTER → 2023-01-23 | Outpatient (CLI) | payer OTHER, SELFPAY ==
--- NOTE | 2023-01-23 07:21 | BI_ITS ---
MAMMOGRAPHY - BILATERAL SCREENING REASON FOR EXAM: Female, 52 years old. Routine annual screening examination. PERTINENT HISTORY: Non-contributory. TECHNIQUE: Digital bilateral breast marianna (3D mammographic acquisition) in the CC and MLO projections. 2-D mediolateral oblique (MLO) and craniocaudad (CC) views of both breasts were obtained. CAD: Full Field Digital Mammography with Computer Added Detection was performed. COMPARISON: Comparison is made with prior study dated January 18, 2022 and December 23, 2020. FINDINGS: Breast Composition: There are scattered areas of fibroglandular density. There are no dominant masses or suspicious calcifications. Stable small benign-appearing bilateral axillary lymph nodes. No other significant abnormalities are identified. There has been no significant change since the prior study. BI/SCRN MAMM (CAD)W/AMRIANNA BILAT IMPRESSION: Stable bilateral screening mammogram. Yearly follow-up mammogram recommended. (A) ASSESSMENT CATEGORY: BIRADS Category 2: Benign. A letter regarding these results will be sent to the patient by the facility within 30 days. Approximately 10% of breast cancers are not detected by mammography. A normal mammogram should not delay biopsy of a clinically suspicious abnormality. [id number] Electronically Signed: Anurag Tillman MD at 8:43 EST ,
== END | disposition home or self-care (01) ==
LOC: OPBI 07:20
PROVIDERS: PCP Internal Medicine; Referring Provider Internal Medicine; Visit Provider Internal Medicine
DX: Z12.31 Encounter for screening mammogram for malignant neoplasm of breast (principal)
CPT/HCPCS: 77063; 77067

== ENCOUNTER → 2023-05-25 | Outpatient (CLI) | payer OTHER, SELFPAY ==
[2023-05-25 09:57] LABS: T4 Free Direct 1.11 ng/dL (0.76-1.46); Thyroid Stim Hormone (TSH) 1.93 uIU/mL (0.358-3.74)
== END | disposition home or self-care (01) ==
PROVIDERS: PCP Internal Medicine; Referring Provider Internal Medicine Endocrinology, Diabetes & Metabolism; Visit Provider Internal Medicine Endocrinology, Diabetes & Metabolism
DX: E03.8 Other specified hypothyroidism (principal)
CPT/HCPCS: 36415; 84439; 84443

== ENCOUNTER → 2023-10-16 | Outpatient (CLI) | payer BC, SELFPAY ==
--- NOTE | 2023-10-16 07:39 | US_ITS ---
STUDY: ABDOMINAL ULTRASOUND - RIGHT UPPER QUADRANT; ELASTOGRAPHY REASON FOR VISIT: Female, 53 years old. Fatty infiltration of the liver. TECHNIQUE: Ultrasound evaluation of the right upper quadrant was performed with real-time and static christianson-scale imaging. Point quantification shear wave elastography was performed ([employer]). TECHNICAL QUALITY: Adequate. COMPARISON: Comparison is made with prior study dated May 04, 2022. FINDINGS: Liver: The liver measures 17 cm. There is increased echogenicity consistent with fatty infiltration. The bile ducts are within normal limits. There is hepatic color flow. The direction of portal flow is hepatopetal. There is no demonstrated mass lesion. Median liver stiffness measured 7.2 kPa. Gallbladder: The patient is status post cholecystectomy. Common Bile Duct (C.B.D.): The common bile duct measures 4.2 mm. Pancreas: There is normal echogenicity of the visualized pancreas. There is no demonstrated pancreatic mass or cyst. Right Kidney: Normal size of the right kidney. The right kidney measures 10.6 cm x 4.7 cm x 4.2 cm. Normal renal cortex. The right cortex measures 1.7 cm. There is no demonstrated renal mass or cyst. There is no right hydronephrosis. US/ABD Limited w/ Elastography IMPRESSION: 1. Liver stiffness measures 7.2 kPa compatible with F2-F3 (Mild to moderate liver fibrosis) Metavir score. Electronically Signed: Anurag Tillman MD at 14:38 EDT ,
[2023-10-16 08:57] LABS: Absolute Lymphocyte Count 1.46 X10^3/uL (0.83-4.51); Absolute Neutrophil Count 3.9 X10^3/uL (2.0-7.7); Basophil# 0.06 X10^3/uL; Eosinophil# 0.08 X10^3/uL; Eosinophils% 1.4 % (0-5); Hematocrit 42.3 % (37-47); Hemoglobin 13.8 g/dL (12.0-15.0); Lymphocyte # 1.46 X10^3/ul (0.83-4.51); Lymphocyte % 24.7 % (19-41); Mean Corp Hgb Conc 32.6 g/dL (32-36); Mean Corpuscular Hgb 28.8 pg (27.0-32.0); Mean Corpuscular Volume 88.3 fL (81-99); Mean Platelet Vol. 8.5 fl (6.2-12.0); Monocyte# 0.36 X10^3/uL; Monocyte% 6.1 % (0-10); NRBC Flagged by Analyzer 0 % (0-5); Neutrophil # 3.94 X10^3/uL (2.7-7.7); Neutrophil % 66.5 % (47-70); Platelet Count 286 K/mm3 (150-450); RBC Distribution Width CV 13.2 % (11.6-14.6); Red Blood Count 4.79 M/mm3 (4.2-5.4); White Blood Count 5.9 K/mm3 (4.4-11.0)
[2023-10-16 09:01] LABS: International Normalized Ratio 1.1; Prothrombin Time (Protime)PT. 14.3 SECONDS (11.7-14.9)
[2023-10-16 09:14] LABS: Erythrocyte Sedimentation Rate 7 mm/hr (0-30)
[2023-10-16 09:28] LABS: ALB/GLOB Ratio 0.9 RATIO (0.9-2.4); AST(SGOT) 24 U/L (15-37); Alanine Aminotransfer ALT/SGPT 29 U/L (13-56); Albumin, Serum 3.8 g/dL (3.2-5.0); Alkaline Phosphatase 85 U/L (45-117); Anion Gap 8 (5-15); BUN 17 mg/dL (7-18); BUN/Creat Ratio 16.5 RATIO (10-20); Chloride 105 mmol/L (98-107); Creatinine, Serum 1.03 mg/dL (0.55-1.02); EST Glomerular Filtration Rate 59 mL/min (>60); Est Glom Filt Rate - Afr Amer 72 mL/min (>60); Globulin 4.2 g/dL (2.2-4.2); Glucose 105 mg/dL (74-106); Potassium 4.2 mmol/L (3.5-5.1); Sodium Level 140 mmol/L (136-145)
== END | disposition home or self-care (01) ==
LOC: US 07:37
PROVIDERS: PCP Internal Medicine; Referring Provider Internal Medicine Gastroenterology; Visit Provider Internal Medicine Gastroenterology
DX: K76.0 Fatty (change of) liver, not elsewhere classified (principal)
CPT/HCPCS: 36415; 76705; 76981; 80053; 85025; 85610; 85652; 86140

== ENCOUNTER → 2023-10-19 | Outpatient (CLI) | payer BC, SELFPAY ==
--- NOTE | 2023-10-19 06:20 | ECHOD_ITS ---
Reason For Study: SOB, CHEST PAIN Procedure This was a 2D Doppler, Color Flow transthoracic echocardiogram. Exam performed in department. Left Ventricle Normal LV size. Left ventricular systolic function is normal. The left ventricular ejection fraction is 65 %. Stage 1 diastolic dysfunction. Right Ventricle Normal RV size. Normal systolic function. Atria Normal left atrium. Normal right atrium. Mitral Valve Normal mitral valve. Mild (1+) eccentric mitral valve insufficiency. Tricuspid Valve Normal tricuspid valve. Mild (1+) tricuspid valve insufficiency. Pulmonary artery systolic pressure is 26 mmHg. Aortic Valve Trisinus/trileaflet aortic valve. Pulmonic Valve Normal pulmonic valve. Great Vessels Normal aortic root. The pulmonary artery is normal size. Normal inferior vena cava. Pericardium/Pleural No pericardial effusion. MMode/2D Measurements & Calculations LVIDd: 4.5 cm IVSd: 0.93 cm Ao root diam: 3.0 cm LVIDs: 3.0 cm LVPWd: 0.97 cm RVDd: 3.3 cm FS: 32.2 % LAV(MOD-bp): 41.0 ml LVAd ap4: 23.7 cm2 LVAd ap2: 20.4 cm2 LAV(MOD-bp) Indexed: 19.5 ml/m2 LVLd ap4: 7.6 cm LVLd ap2: 7.2 cm LAV(MOD-sp2): 40.2 ml EDV(MOD-sp4): 60.7 ml EDV(MOD-sp2): 50.0 ml LAV(MOD-sp4): 40.5 ml EDV(sp4-el): 62.4 ml EDV(sp2-el): 49.3 ml LVAs ap4: 11.9 cm2 LVAs ap2: 10.3 cm2 LVLs ap4: 6.4 cm LVLs ap2: 5.6 cm ESV(MOD-sp4): 18.9 ml ESV(MOD-sp2): 16.3 ml ESV(sp4-el): 18.9 ml ESV(sp2-el): 16.2 ml EF(MOD-sp4): 68.8 % EF(MOD-sp2): 67.4 % EF(sp4-el): 69.7 % SV(MOD-sp4): 41.7 ml SV(MOD-sp2): 33.7 ml SV(sp4-el): 43.5 ml LA dimension(2D): 3.9 cm LA A4 area: 15.2 cm2 RA A4 area: 13.0 cm2 TAPSE: 2.1 cm Time Measurements MV dec time: 0.22 sec Doppler Measurements & Calculations MV E max reed: 79.1 cm/sec Lat Peak E' Reed: 10.6 cm/sec Med Peak E' Reed: 6.8 cm/sec MV A max reed: 86.3 cm/sec E/E' lat: 7.5 E/E' med: 11.6 MV E/A: 0.92 MV V2 max: 115.2 cm/sec MV P1/2t max reed: 91.1 cm/sec Ao V2 max: 133.5 cm/sec MV max P.3 mmHg MV P1/2t: 68.3 msec Ao max P.1 mmHg MV V2 mean: 77.2 cm/sec MV dec slope: 390.7 cm/sec2 Ao V2 mean: 97.0 cm/sec MV mean P.6 mmHg Ao mean P.2 mmHg MV V2 VTI: 19.8 cm MVA(P1/2t): 3.2 cm2 Ao V2 VTI: 31.2 cm AV (velocity ratio): 0.83 LV V1 max: 116.2 cm/sec PA V2 max: 86.5 cm/sec TR max reed: 241.0 cm/sec LV V1 max P.4 mmHg PA V2 mean: 64.0 cm/sec TR max P.2 mmHg LV V1 mean P.5 mmHg LV V1 mean: 89.2 cm/sec LV V1 VTI: 25.8 cm ECHO/Echo Complete Interpretation Summary Normal LV size. Left ventricular systolic function is normal. The left ventricular ejection fraction is 65 %. Stage 1 diastolic dysfunction. Pulmonary artery systolic pressure is 26 mmHg. Ordering Physician: Liana Morfin Referring Physician: Liana Morfin Performed By: Diane Bolaños, ANGIECS, RVT
--- NOTE | 2023-10-19 17:49 | STRESSREP_ITS ---
Stress Test Report Exercise myocardial perfusion stress test. 53-year-old lady with a history of chest pain Stress protocol: Resting EKG demonstrates normal sinus rhythm with a rate of 67 bpm resting blood pressure is 150/100 mmHg. The patient exercised according to the regular Edgardo protocol for a total duration of 6 minutes attaining a maximum heart rate of 166 bpm which was 99 of maximum predicted heart rate; the maximum workload was 7.2 metabolic equivalents. At rest there were no ST or T wave changes noted to suggest ischemia and at peak exercise upsloping ST changes only were noted which did not meet the criteria for ischemia. No clinical angina was noted the test was terminated due to the target heart rate being achieved/fatigue. The peak b lood pressure was 174/90 mmHg. Rate-pressure product was 28,200. Myocardial perfusion protocol. 14 point mCi of technetium 99m sestamibi was injected at rest. The patient exercised according to regular Edgardo protocol for total duration of 6-minute and at peak exercise 44.3 mCi of technetium 99m sestamibi was injected stress images were obtained stress and rest images were reconstructed in comparing the short axis vertical long and horizontal long axis. Gated images were also obtained. Perfusion SPECT analysis: Review of the stress images demonstrate normal uptake of tracer noted in all ar eas of the myocardium. The resting images similarly demonstrate normal uptake of tracer noted in all areas of the myocardium. No areas of reversibility are noted to suggest ischemia no previous infarct was noted. Gated SPECT analysis: The gated ejection fraction is over 80%. Conclusion: Normal exercise myocardial perfusion stress test at a moderate workload Preserved ejection fraction.
== END | disposition home or self-care (01) ==
PROVIDERS: PCP Internal Medicine; Referring Provider Internal Medicine; Visit Provider Internal Medicine
DX: R06.02 Shortness of breath (principal); R07.89 Other chest pain
CPT/HCPCS: 78452; 93017; 93306; A9500; A4216

== ENCOUNTER → 2024-01-25 | Outpatient (CLI) | payer BC, SELFPAY ==
--- NOTE | 2024-01-25 08:21 | BI_ITS ---
MAMMOGRAPHY - BILATERAL SCREENING REASON FOR EXAM: Female, 53 years old. Routine annual screening examination. PERTINENT HISTORY: Non-contributory. TECHNIQUE: Digital bilateral breast marianna (3D mammographic acquisition) in the CC and MLO projections. 2-D mediolateral oblique (MLO) and craniocaudad (CC) views of both breasts were obtained. CAD: Full Field Digital Mammography with Computer Added Detection was performed. COMPARISON: Comparison is made with prior study dated January 23, 2023 and January 18, 2022. FINDINGS: Breast Composition: There are scattered areas of fibroglandular density. There are no dominant masses or suspicious calcifications. Stable small benign-appearing bilateral axillary lymph nodes. No other significant abnormalities are identified. There has been no significant change since the prior study. BI/SCRN MAMM (CAD)W/MARIANNA BILAT IMPRESSION: Stable bilateral screening mammogram. Yearly follow-up mammogram recommended. (A) ASSESSMENT CATEGORY: BIRADS Category 2: Benign. A letter regarding these results will be sent to the patient by the facility within 30 days. Approximately 10% of breast cancers are not detected by mammography. A normal mammogram should not delay biopsy of a clinically suspicious abnormality. [id number] Electronically Signed: Anurag Tillman MD at 9:45 EST ,
--- NOTE | 2024-01-25 08:25 | BD_ITS ---
STUDY: DUAL ENERGY X-RAY ABSORPTIOMETRY / DXA REASON FOR EXAM: Female, 54 years old. M810 TECHNIQUE: Bone Mineral Density (BMD) measurements of lumbar spine and bilateral hips were obtained. COMPARISON: Comparison is made with prior study dated August 24, 2021. FINDINGS: Lumbar Spine (L1-L4): g/cm2 (0.691) / T-score (-3.2) / Z-score (-2.2) Findings are suggestive of osteoporosis with a high fracture risk. Left Femur Total: g/cm2 (0.868) / T-score (-0.6) / Z-score (0.0) Left Femoral Neck: g/cm2 (0.689) / T-score (-1.4) / Z-score (-0.5) Right Femur Total: g/cm2 (0.851) / T-score (-0.7) / Z-score (-0.1) Right Femoral Neck: g/cm2 (0.737) / T-score (-1.0) / Z-score (0.0) The T-Scores on the most recent prior examination were: Lumbar Spine (L1-L4): There has been worsening of bone density since the previous examination. Left Femur Total: which represents an improvement of 2.4%. Right Femur Total: which represents a worsening of 0.6%. BD/Dexa Bone Density Study IMPRESSION: The patient is considered osteoporotic as outlined below according to World Star Organization (WHO) criteria with a high fracture risk. There has been worsening of bone density since the previous examination. Reference Information: The T-score is the number of standard deviations above or below the standard which is normal for young adults at their peak bone mineral density. The World Health Organization (WHO) interprets the T-scores as follows: Above -1 Normal bone density Between -1 and -2.5 Osteopenia Equal to / or below -2.5 Osteoporosis As a practical clinical guideline, osteopenia may be graded as follows: Mild -1 through -1.5 Moderate -1.6 through -2.0 Severe -2.1 through -2.4 The Z-score is the number of standard deviations above or below age-matched controls. A Z-score of less than -1.5 would be considered abnormal. References: 1. NIH Osteoporosis and Related Bone Diseases www osteo.org 2. International Society for Clinical Densitometry www iscd.org 3. National Osteoporosis Foundation www nof.org Electronically Signed: Anurag Tillman MD at 14:18 EST ,
== END | disposition home or self-care (01) ==
LOC: OPBD 08:20
PROVIDERS: PCP Internal Medicine; Referring Provider Internal Medicine; Visit Provider Internal Medicine
DX: Z12.31 Encounter for screening mammogram for malignant neoplasm of breast (principal); M81.0 Age-related osteoporosis without current pathological fracture
CPT/HCPCS: 77063; 77067; 77080

== ENCOUNTER → 2024-05-31 | Outpatient (CLI) | payer BC, SELFPAY ==
--- NOTE | 2024-05-31 11:11 | US_ITS ---
PROCEDURE: US ABDOMEN LIMITED 05/31/2024 REASON FOR EXAM: ABDOMINAL PAIN VOMITING AND DIARRHEA TECHNIQUE: Complete abdominal ultrasound ford-scale images with color doppler. PATIENT PREPARATION: Per protocol COMPARISON: No relevant prior FINDINGS: Liver: Normal in size. 16.7 cm sagittally. Hyper echogenic parenchyma. Blood flow: Hepatopetal. Gallbladder: Surgically absent. Common bile duct: 0.52 cm no biliary ductal dilatation.. Pancreas: Unremarkable. Kidneys: The right kidney measures 9.8 x 5.7 x 4.3 cm.. Cortex measures 1.0 cm. US/Abdomen Limited IMPRESSION: Status post cholecystectomy. Steatosis. Reading Location: [facility]
[2024-05-31 13:10] LABS: Erythrocyte Sedimentation Rate 6 mm/hr (0-30)
[2024-05-31 13:13] LABS: Absolute Lymphocyte Count 0.97 X10^3/uL (0.83-4.51); Absolute Neutrophil Count 3.9 X10^3/uL (2.0-7.7); Basophil# 0.01 X10^3/uL; Basophil% 0.2 % (0-1); Eosinophil# 0.03 X10^3/uL; Eosinophils% 0.5 % (0-5); Hematocrit 42.4 % (37-47); Hemoglobin 14.1 g/dL (12.0-15.0); Lymphocyte # 0.97 X10^3/ul (0.83-4.51); Lymphocyte % 17.4 % (19-41); Mean Corp Hgb Conc 33.3 g/dL (32-36); Mean Corpuscular Hgb 29.6 pg (27.0-32.0); Mean Corpuscular Volume 88.9 fL (81-99); Mean Platelet Vol. 8.8 fl (6.2-12.0); Monocyte# 0.67 X10^3/uL; NRBC Flagged by Analyzer 0 % (0-5); Neutrophil # 3.89 X10^3/uL (2.7-7.7); Neutrophil % 69.5 % (47-70); Platelet Count 259 K/mm3 (150-450); RBC Distribution Width CV 13.6 % (11.6-14.6); Red Blood Count 4.77 M/mm3 (4.2-5.4); White Blood Count 5.6 K/mm3 (4.4-11.0)
[2024-05-31 13:26] LABS: AST(SGOT) 30 U/L (<=31); Alanine Aminotransfer ALT/SGPT 23 U/L (<=34); Albumin, Serum 4.3 g/dL (3.5-5.0); Alkaline Phosphatase 77 U/L (35-104); Anion Gap 13 (5-15); BUN 20 mg/dL (4-19); BUN/Creat Ratio 14.5 RATIO (10-20); Bilirubin, Direct 0.26 mg/dL (0.00-0.30); Calcium,Total 9.1 mg/dL (7.6-11.0); Carbon Dioxide 24.1 mmol/L (21.0-32.0); Chloride 99 mmol/L (98-108); Creatinine, Serum 1.35 mg/dL (0.70-1.20); EST Glomerular Filtration Rate 47 (>60); Glucose 93 mg/dL (70-99); Potassium 3.7 mmol/L (3.3-5.1); Protein, Total 7.3 g/dL (5.9-8.4); Sodium Level 137 mmol/L (133-145); Total Bilirubin 0.58 mg/dL (0.00-1.30)
[2024-05-31 13:39] LABS: Amylase 30 U/L (28-100); LDH 231 U/L (84-246); Lipase 38 U/L (13-75)
[2024-06-02 06:38] LABS: AFP, Tumor Marker 3.5 ng/mL (0.0-9.2)
== END | disposition home or self-care (01) ==
PROVIDERS: PCP Internal Medicine; Referring Provider Nurse Practitioner Family; Visit Provider Nurse Practitioner Family
DX: R10.9 Unspecified abdominal pain (principal)
CPT/HCPCS: 76705; 80048; 80076; 82105; 82150; 83615; 83690; 85025; 85652; 86140

== ENCOUNTER → 2024-10-16 | Outpatient (CLI) | payer BC, SELFPAY ==
--- NOTE | 2024-10-16 07:17 | US_ITS ---
PROCEDURE: ABD LIMITED W/ ELASTOGRAPHY REASON FOR EXAM: FATTY LIVER COMPARISON: October 17, 2023. TECHNIQUE: Procedure Code: [id number] Modality: US Procedure: ABD LIMITED W/ ELASTOGRAPHY Right upper quadrant abdominal ultrasound. [facility] ElastQ Imaging shear wave elastography for non-invasive assessment of liver tissue stiffness. Lisa EPIQ Elite. FINDINGS: LIVER: Size: Unremarkable Length: 16.3 cm Echotexture: Diffusely echogenic suggesting fatty infiltration Contour: Normal Lesions: None identified Elastography: EQI Med: 4.63 kPa EQI Med Reed: 1.24 m/s IQR/Med: 19.8 %* GALLBLADDER: Surgically absent. COMMON BILE DUCT: Normal measuring 5 mm . PANCREAS: Normal Visualized portions of the right kidney are unremarkable. No right upper quadrant ascites. US/ABD Limited w/ Elastography IMPRESSION: NO TO MILD HEPATIC FIBROSIS Fatty infiltration of the liver. Reference Values: SRU <1.37 m/s (5.7kPa): No to mild fibrosis 1.37 m/s - 2.2 m/s: Moderate to severe fibrosis >2.2 m/s (15kPa): Significant fibrosis / cirrhosis METAVIR Score F2 or higher: 1.34 m/s (5.7kPa) F3 or higher: 1.55 m/s (7.3kPa) F4: 1.80 m/s (10kPa) * If the IQR/Med is >30%, the variance in the measurements is a large and the a ccuracy of the measurement may be in question. Reading Location: [facility]
[2024-10-16 09:00] LABS: AST(SGOT) 21 U/L (<=31); Alanine Aminotransfer ALT/SGPT 16 U/L (<=34); Albumin, Serum 4.1 g/dL (3.5-5.0); Alkaline Phosphatase 85 U/L (35-104); Anion Gap 10 (5-15); BUN 15 mg/dL (4-19); BUN/Creat Ratio 15.2 RATIO (10-20); Calcium,Total 9.6 mg/dL (7.6-11.0); Carbon Dioxide 23.9 mmol/L (21.0-32.0); Chloride 106 mmol/L (98-108); Cholesterol 193 mg/dL (<=200); Globulin 3.3 g/dL (2.2-4.2); Glucose 111 mg/dL (70-99); Low Density Lipoprotein Calc. 121 mg/dL; Potassium 4.3 mmol/L (3.3-5.1); Triglycerides 117 mg/dL; Very Low Density Lipoprotein 23 mg/dL (5-40); cholesterol:hdl ratio screen 3.95
== END | disposition home or self-care (01) ==
PROVIDERS: PCP Internal Medicine
DX: K76.0 Fatty (change of) liver, not elsewhere classified (principal)
CPT/HCPCS: 36415; 76705; 76981; 80053; 80061

== ENCOUNTER 2024-10-28 16:22 | Outpatient (CLI) | payer BC, SELFPAY | END 2024-10-28 23:59 | disposition home or self-care (01) | LOC: LAB 16:23 | PROVIDERS: PCP Internal Medicine; Referring Provider Nurse Practitioner Acute Care; Visit Provider Nurse Practitioner Acute Care | DX: K76.0 Fatty (change of) liver, not elsewhere classified (principal); E66.01 Morbid (severe) obesity due to excess calories; Z68.38 Body mass index [BMI] 38.0-38.9, adult ==

== ENCOUNTER 2025-01-17 07:59 | Outpatient (CLI) | payer BC, SELFPAY ==
[2025-01-17 08:16] VITALS: BP 142/85; PULSE 77; RESP 16; TEMP 36.3; O2SAT 98; BMI 41.2
[2025-01-17] MEDS: 0.9% NaCl Peripheral Flush Adult IV (08:28)
[2025-01-17] MEDS: 0.9% NaCl IVPB Med Flush (100mL) 15 ML IV (08:28)
[2025-01-17 09:13] VITALS: BP 140/85; PULSE 66; RESP 16; TEMP 36.2; O2SAT 100
== END 2025-01-17 23:59 | disposition home or self-care (01) ==
LOC: MEDOUTP 07:59
PROVIDERS: PCP Internal Medicine; Referring Provider Internal Medicine Endocrinology, Diabetes & Metabolism; Visit Provider Internal Medicine Endocrinology, Diabetes & Metabolism
DX: M81.0 Age-related osteoporosis without current pathological fracture (principal)
CPT/HCPCS: 96365; A4216; J3489